=== PATIENT | female | born 1960 | race Caucasian/White ===

== ENCOUNTER 2020-07-02 12:08 | Emergency (ER) | payer OTHER, SELFPAY ==
--- NOTE | ~2020-07-02 | XR_ITS ---
EXAMINATION: XR foot LT min 3V DATE: 07/02/2020 12:31 INDICATION: Left foot injury and pain. TECHNIQUE: 4 views of left foot were obtained. COMPARISON: Left foot radiograph 05/01/2018 FINDINGS: Bone alignment is normal. No fracture. There is mild osteoarthritis of first metatarsophala ngeal joint. There is an enthesophyte at plantar aspect of calcaneal tuberosity. IMPRESSION: 1. Mild osteoarthritis of first metatarsophalangeal joint. Reviewed, dictated and finalized at location B.
[2020-07-02 12:19] VITALS: BP 127/70; PULSE 75; RESP 18; TEMP 36.5; O2SAT 97
--- NOTE | 2020-07-02 12:36 | ED.LOWEXIN ---
HPI - Extremity Injury (Lower) General Chief Complaint: Extremity Injury, Lower Stated Complaint: L/foot pain Source: patient Mode of arrival: ambulatory Limitations: no limitations History of Present Illness HPI Narrative: Patient is a 6-year-old female who presents complaining of left foot pain. She reports hitting foot on a shopping cart approximately 3 days ago. Reports past injury approximately 1.5 years ago with fracture to metatarsal. Reports ecchymosis that has resolved, tenderness with palpation or ambulation. Denies swelling. Denies other injuries. Related Data Home Medications Medication Instructions Recorded Confirmed fluoxetine 20 mg PO DAILY 07/02/20 07/02/20 gabapentin 600 mg PO DAILY 07/02/20 07/02/20 Allergies Allergy/AdvReac Type Severity Reaction Status Date / Time sulfamethizole Allergy Unknown Unknown Verified 07/02/20 12:23 sulfamethoxazole Allergy Unknown Unknown Verified 07/02/20 12:23 trimethoprim Allergy Unknown Unknown Verified 07/02/20 12:23 Review of Systems Review of Systems: Narrative: CONSTITUTIONAL: Denies fever, chills, or sweats. EYES: Denies visual changes, redness, or discharge. ENT: Denies rhinorrhea, congestion, sore throat, or otalgia. CARDIOVASCULAR: Denies chest pain, palpitations, or edema. RESPIRATORY: Denies cough or dyspnea. GASTROINTESTINAL: Denies abdominal pain, nausea, vomiting, or diarrhea. GENITOURINARY: Denies dysuria or hematuria. SKIN: Denies rash or itching. MUSCULOSKELETAL: Denies back pain, joint pain, or myalgia. Reports left foot pain NEUROLOGIC: Denies headache, numbness, dizziness, or weakness. PSYCHIATRIC: Denies anxiety or depression. PMFSH Past Medical History Medical History (Updated 07/02/20 @ 12:47 by GREGORIO Bateman) Migraines Social History Social History Smoking status: Never smoker Alcohol intake: never Exam Narrative: Exam Narrative: GENERAL: Well-appearing, well-nourished, and in no acute distress. HEAD: Normocephalic, atraumatic. EYES: EOMI. No redness or drainage. Conjunctiva are normal. ENT: Mucous membranes pink and moist. CHEST: No respiratory distress. Clear to auscultation. HEART: Regular rate and rhythm. No murmur appreciated. Normal peripheral pulses. EXTREMITIES: Normal range of motion. Tenderness palpation to fourth and fifth metatarsals, no edema, ecchymosis or erythema noted SKIN: Warm, dry, no rash. NEURO: No focal deficits. Alert and oriented x3. Gait steady. PSYCH: Normal affect. No signs of depression or anxiety. Course Vital Signs Vital signs: Vital Signs Temperature 36.5 C 07/02/20 12:19 Pulse Rate 75 07/02/20 12:19 Respiratory Rate 18 07/02/20 12:19 Blood Pressure 127/70 07/02/20 12:19 Pulse Oximetry 97 07/02/20 12:19 Temperature 36.5 C 07/02/20 12:19 Pulse Rate 75 07/02/20 12:19 Respiratory Rate 18 07/02/20 12:19 Blood Pressure 127/70 07/02/20 12:19 Pulse Oximetry 97 07/02/20 12:19 Reviewed. Patient has been instructed to follow-up with her PCP regarding her blood pressure. MDM - Extremity Injury (Lower) MDM Narrative Medical decision making narrative: Patient's x-ray shows no fracture or dislocation. Discussed with patient. Patient reports albert taping fourth and fifth toe has decreased pain. Patient may continue to albert tape as needed. Postop shoe offered. Follow-up with corn breeder if symptoms persist. Imaging Data Radiologist's impression: FINDINGS: Bone alignment is normal. No fracture. There is mild osteoarthritis of first metatarsophalangeal joint. There is an enthesophyte at plantar aspect of calcaneal tuberosity. Critical Care Time Critical Care Time Critical Care Time: No Discharge Plan Discharge Clinical Impression: Foot pain, left Patient Disposition: Home, Self-Care Condition: Stable Instructions: Contusion in Adults (ED) Additional Instructions: You may u
== END 2020-07-02 13:27 | disposition home or self-care (01) ==
PROVIDERS: Emergency Provider Nurse Practitioner
DX: M79.672 Pain in left foot (principal)
CPT/HCPCS: 73630; 99213; G0463

== ENCOUNTER 2021-11-04 10:01 | Emergency (ER) | payer OTHER, SELFPAY ==
--- NOTE | ~2021-11-04 | XR_ITS ---
EXAMINATION: XR abdomen/kub 1V DATE: 11/04/2021 10:37 INDICATION: Right abdominal pain. Hematuria. TECHNIQUE: A supine view of the abdomen on 2 radiographs was obtained. COMPARISON: Abdomen radiographs 10/07/2018, CT abdomen and pelvis 10/07/2018 FINDINGS: There are no dilated loops of bowel. There are phleboliths in the pelvis. Surgical clips in the right upper quadrant are likely from cholecystectomy. IMPRESSION: 1. No visible urolithiasis. Reviewed, dictated and finalized at location A. SCREEN PRINTER IMPRESSION: 1. No visible urolithiasis.
[2021-11-04 10:12] VITALS: BP 137/51; PULSE 76; RESP 18; TEMP 36.6; O2SAT 98
--- NOTE | 2021-11-04 10:12 | ED.FEMALEGU ---
HPI - Female Genitourinary General Chief complaint: Urogenital-Female Stated complaint: Female Urogenital Time Seen by Provider: 11/04/21 10:12 Source: patient Mode of arrival: ambulatory Limitations: no limitations History of Present Illness HPI Narrative: Elena is a 61-year-old female patient ambulated into the [facility]. Patient states she has had urinary frequency urinary urgency and right flank pain since October 29. Patient called her primary physician was put on Macrobid twice daily for 5 days. She has completed the antibiotic regimen. She states she has a history of gout. She states last couple days she has had increased pain. She describes burning with urination. She is allergic to Cipro which gives her a rash. She has had multiple previous surgeries including hernia surgery hysterectomy appendectomy cholecystectomy. Patient denies any fever denies any chills. Patient has been increasing her water intake. Patient states she has a family history of stones but herself she has never had MD elicited complaint: dysuria Related Data Home Medications Medication Instructions Recorded Confirmed fluoxetine 20 mg PO DAILY 07/02/20 11/04/21 gabapentin 600 mg PO DAILY 07/02/20 11/04/21 Allergies Allergy/AdvReac Type Severity Reaction Status Date / Time sulfamethizole Allergy Mild Hives Verified 11/04/21 10:25 sulfamethoxazole Allergy Mild Hives Verified 11/04/21 10:25 trimethoprim Allergy Mild Hives Verified 11/04/21 10:25 Review of Systems Review of Systems: CONSTITUTIONAL: Denies body aches, fever, chills, or sweats. EYES: Denies visual changes, redness, or discharge. ENT: Denies rhinorrhea, congestion, sore throat, or otalgia. CARDIOVASCULAR: Denies chest pain, palpitations, or edema. RESPIRATORY: Denies cough or dyspnea. GASTROINTESTINAL: Denies abdominal pain, nausea, vomiting, or diarrhea. GENITOURINARY: + dysuria + hematuria. SKIN: Denies rash, itching, or wounds. MUSCULOSKELETAL: + back pain, denies joint pain, or myalgia. NEUROLOGIC: Denies headache, numbness, tingling, or weakness. PSYCH: Denies depression or anxiety. PMFSH Past Medical History Medical History Migraines Social History Social History (Reviewed 11/04/21 @ 10:16 by ALINA Baez Smoking status: Never smoker Alcohol intake: never Comments At time of signature, I have reviewed and agree with nursing past medical, surgical, social and family history unless otherwise noted. Please see nursing chart for further information. There is no relevant family history pertinent to the presenting complaint Exam Narrative: GENERAL: Well-appearing, well-nourished, and in no acute distress. HEAD: Normocephalic, atraumatic. EYES: EOMI. No redness or drainage. Conjunctivae normal. ENT: Mucous membranes pink and moist. Nares clear. No rhinorrhea. NECK: Normal AROM. Supple. CHEST: No respiratory distress. Clear to auscultation. ABDOMEN: Soft, nontender, nondistended, normal active bowel sounds. No rebound tenderness psoas sign is negative. Negative for CVA tenderness bilaterally MUSCULOSKELETAL: No bony tenderness. EXTREMITIES: Normal range of motion. No edema. SKIN: Warm, dry, no rash. Capillary refill normal. Normal skin turgor. NEURO: No focal deficits. Alert and oriented x3. Gait steady. PSYCH: Normal affect. No signs of depression or anxiety. Course Vital Signs Vital signs: Vital Signs Temperature 36.6 C 11/04/21 10:12 Pulse Rate 76 11/04/21 10:12 Respiratory Rate 18 11/04/21 10:12 Blood Pressure 137/51 L 11/04/21 10:12 Pulse Oximetry 98 11/04/21 10:12 Temperature 36.6 C 11/04/21 10:12 Pulse Rate 76 11/04/21 10:12 Respiratory Rate 18 11/04/21 10:12 Blood Pressure 137/51 L 11/04/21 10:12 Pulse Oximetry 98 11/04/21 10:12 Reviewed. Pt has been instructed to follow up with her PCP regarding her elevated blood pressure
== END 2021-11-04 11:05 | disposition home or self-care (01) ==
PROVIDERS: Emergency Provider Nurse Practitioner Family
DX: R30.0 Dysuria (principal)
CPT/HCPCS: 74018; 81003; 87086; 87088; 99213; G0463

== ENCOUNTER 2021-12-14 11:32 | Emergency (ER) | payer OTHER, SELFPAY ==
[2021-12-14 11:34] VITALS: BP 138/72; PULSE 86; RESP 16; TEMP 36.2; O2SAT 95
[2021-12-14 14:01] VITALS: BP 120/90; PULSE 99; RESP 15; O2SAT 96
--- NOTE | 2021-12-14 14:29 | PC.NURSE ---
pt to leave d/t wait time,
== END 2021-12-14 15:36 | disposition left against medical advice (07) ==
LOC: ANHED 14:38
DX: R10.9 Unspecified abdominal pain (principal)
CPT/HCPCS: 99199

== ENCOUNTER 2022-09-12 10:01 | Emergency (ER) | payer OTHER, SELFPAY ==
[2022-09-12 10:13] VITALS: BP 116/70; PULSE 78; RESP 18; TEMP 36.6; O2SAT 98
--- NOTE | 2022-09-12 10:19 | ED.URI ---
HPI - URI/Sore Throat General Chief Complaint: Upper Respiratory Infection Stated Complaint: sorethroat Source: patient Mode of arrival: ambulatory Limitations: no limitations History of Present Illness HPI Narrative: This is a 60-year-old female comes in complaining sore throat sinus drainage ear pressure a single onset of hiatal October. Patient states she just got back from [facility] on the and had calmed down not feeling well he has been taking Mucinex daily some Claritin some Tylenol: Full and nothing has seemed to help patient denies having any fever nausea vomiting and/or diarrhea but feels like her throat is on fire. Patient states she called primary care provider who informed her that can get around for her to come to urgent care. Related Data Home Medications Medication Instructions Recorded Confirmed fluoxetine 20 mg capsule 20 mg PO DAILY 07/02/20 09/12/22 gabapentin 600 mg tablet 600 mg PO DAILY 07/02/20 09/12/22 Allergies Allergy/AdvReac Type Severity Reaction Status Date / Time sulfamethizole Allergy Mild Hives Verified 09/12/22 10:18 sulfamethoxazole Allergy Mild Hives Verified 09/12/22 10:18 trimethoprim Allergy Mild Hives Verified 09/12/22 10:18 Review of Systems Review of Systems: sore throat, nose pressure, ear pain All systems reviewed & are unremarkable except as noted in HPI and below PMFSH Past Medical History Medical History Migraines Social History Social History Smoking status: Never smoker Alcohol intake: never Exam Narrative: GENERAL:Well-appearing, well-nourished, and in no acute distress. HEAD:Normocephalic. EYES: PERRLA and EOMI. ENT: Nares clear, positive rhinorrhea pale boggy turbinates with some erythema on the right side swollen. Mucous membranes moist. CHEST: Clear to auscultation. No respiratory distress. HEART: Regular rate and rhythm Normal peripheral pulses. ABDOMEN: Soft, nontender, nondistended, normal active bowel sounds. EXTREMITIES: Normal range of motion. No edema. SKIN: Warm, dry, no rash. NEURO: No focal deficits. Alert and oriented x3. Course Course Level of Care: Express Care Visit Vital Signs Vital signs: Vital Signs Temperature 97.8 F 09/12/22 10:13 Pulse Rate 78 09/12/22 10:13 Respiratory Rate 18 09/12/22 10:13 Blood Pressure 116/70 09/12/22 10:13 Pulse Oximetry 98 09/12/22 10:13 Oxygen Delivery Room Air 09/12/22 10:13 Temperature 97.8 F 09/12/22 10:13 Pulse Rate 78 09/12/22 10:13 Respiratory Rate 18 09/12/22 10:13 Blood Pressure 116/70 09/12/22 10:13 Pulse Oximetry 98 09/12/22 10:13 Oxygen Delivery Room Air 09/12/22 10:13 Discharge Plan Discharge Clinical Impression: Upper respiratory infection, Sinusitis Patient Disposition: Home, Self-Care Condition: Stable Instructions: Antibiotic Form, Sinusitis (ED), Rhinosinusitis (DC), Allergies (ED) Additional Instructions: Drink plenty of fluids Take medication as directed As I informed you if ths is viral antibiotics will not help and it only works on bacterial infection You need to follow up with your PCP Prescriptions: New azithromycin [Zithromax Z-Lexa] 250 mg tablet See Rx Instructions .ROUTE .COMPLEX Qty: 6 0RF Rx Instructions: For 250 mg dose pack: take 500 mg today (day 1), then 250 mg for 4 days (days 2-5) fluticasone propionate [Flonase Allergy Relief] 50 mcg/actuation spray,suspension 1 spray intranasal BID Qty: 16 0RF Rx Instructions: administer into each nostril No Action gabapentin 600 mg Tablet 600 mg PO DAILY fluoxetine 20 mg Capsule 20 mg PO DAILY Follow-up/Referrals: UNKNOWN,DOCTOR [Primary Care Provider] - Time of Disposition: 10:31
== END 2022-09-12 10:40 | disposition home or self-care (01) ==
PROVIDERS: Emergency Provider Nurse Practitioner Family
DX: J06.9 Acute upper respiratory infection, unspecified (principal); J32.9 Chronic sinusitis, unspecified
CPT/HCPCS: 99213; G0463

== ENCOUNTER 2022-11-27 09:21 | Inpatient (IN) | payer OTHER, SELFPAY ==
[2022-11-27] VITALS (10 sets, daily range): BP systolic 109–144; BP diastolic 54–74; PULSE 74–84; RESP 16–20; TEMP 36.2–36.8; O2SAT 95–100; BMI 38.5
--- NOTE | ~2022-11-27 | CT_ITS ---
CT Abdomen and Pelvis with contrast. History: Abdominal pain. Spiral CT of the abdomen and pelvis was performed after the administration of intravenous contrast. 1 00 cc of Omnipaque 350 was administered intravenously without complication. Dose reduction technique was used on this scan by utilizing automated exposure control and iterative reconstruction technique. The dose-length product (DLP) was 899.90 mGy-cm. COMPARISON: 10/07/2018 Findings: Scans through the lung bases demonstrate mild atelectatic change. The liver, spleen, pancreas, adrenals and kidneys are within normal limits. Cholecystectomy clips not ed. No evidence of aortic aneurysm. No lymphadenopathy is seen. There is diffuse large bowel wall thickening with mild pericolonic inflammatory change. No abscess or free air. No bowel obstruction. Images through the pelvis were performed. Urinary bladder unremarkable. Patient is post hysterectomy. No pelvic mass. No ascites is seen. Impression: Diffuse infectious/inflammatory colitis. No abscess or free air. Reviewed, dictated and finalized at [facility]. NG I INSTRUCTOR Impression: Diffuse infectious/inflammatory colitis. No abscess or free air.
[2022-11-27 09:58] LABS: Alanine Aminotransferase 29 U/L (6-35); Albumin Level 3.9 g/dL (3.5-5.1); Alkaline Phosphatase 86 U/L (38-126); Anion Gap 8 mmol/L (8-16); Aspartate Amino Transferase 32 U/L (14-36); Bilirubin,Total 1.3 mg/dL (0.2-1.3); Blood Urea Nitrogen 6 mg/dL (7-17); Calcium 8.5 mg/dL (8.4-10.2); Carbon Dioxide 22 mmol/L (22-30); Chloride 109 mmol/L (98-107); Estimated CRCL calculation 94 ml/min; Estimated Glomerular Filt Rate > 60; Glucose 106 mg/dL (65-110); Lipase 28 U/L (23-300); Potassium 3.8 mmol/L (3.4-5.0); Sodium 139 mmol/L (137-145)
[2022-11-27 11:14] LABS: Basophils Absolute Auto 0.1 K/mm3 (0.0-0.1); Basophils Percent Auto 0.5 % (0.2-1.2); Eosinophils Absolute Auto 0.2 K/mm3 (0-0.3); Eosinophils Percent Auto 1.8 % (0-4.4); Hematocrit 44.4 % (37.0-47.0); Hemoglobin 15.6 g/dL (12.0-15.0); Immature Granulocyte Absolute 0.04 K/mm3 (0.00-0.031); Immature Granulocyte Percent A 0.3 % (0-0.5); Lymphocytes Absolute Auto 1.79 K/mm3 (0.9-3.2); Mean Corpuscular HGB Conc 35.1 g/dl (32-36); Mean Corpuscular Hemoglobin 33.3 pg (26-34); Mean Corpuscular Volume 94.9 fl (80-100); Mean Platelet Volume 9.8 fl (7.4-10.4); Monocytes Absolute Auto 0.9 K/mm3 (0.1-0.6); Monocytes Percent Auto 7.5 % (2.6-8.5); Neutrophils Percent Auto 74.9 % (45.5-73.1); Platelet Count Result 290 k/mm3 (150-375); Red Blood Count 4.68 M/mm3 (4.2-5.4); Red Cell Distribution Width 12.1 % (11.5-14.5)
[2022-11-27 11:46] LABS: Add Urine Microscopic? YES; Appearance Urine Slightly Cloudy (Clear); Bilirubin Urine 2+ (Negative); Blood Urine Trace-intact (Negative); Color Urine Dark Yellow (Yellow); Glucose Urine UA Trace mg/dL (Negative); Ketones Urine Trace mg/dL (Negative); Leukocyte Esterase Ur Negative LEU/UL (Negative); Nitrate Urine Positive (Negative); Protein Urine 2+ mg/dL (Negative); Specific Grav Ur 1.025 (1.001-1.035); pH Urine 5.5 (5.0-9.0)
[2022-11-27 11:55] LABS: Mucus Urine Heavy /lpf; Squamous Epithelial Cell Urine Many /hpf (Few)
[2022-11-27] MEDS: MORPHINE SULFATE (*CRX) 4 MG/ML INJ IV PUSH ×2 (12:08→15:52)
[2022-11-27] MEDS: ONDANSETRON INJ 4 MG/2 ML VIAL IV PUSH (12:08)
--- NOTE | 2022-11-27 12:41 | ED.ABDPAIN ---
HPI - Abdominal Pain General Chief Complaint: Abdominal Pain Stated Complaint: diarrhea x 3 weeks/abd pain Time Seen by Provider: 11/27/22 11:40 History of Present Illness HPI narrative: Patient is a 62-year-old female who presents ER with diarrhea. Ongoing over the last 3 weeks. Reports she had a COVID vaccination on 11/03/2022, she then developed a UTI and started Keflex. She has been having diarrhea since then. She cannot count the number of times a day she has loose stool because it is nearly constant. She has developed severe pain in her lower abdomen. She endorses fever. No out of country travel or exposure to untreated water. Related Data Home Medications Medication Instructions Recorded Confirmed fluoxetine 20 mg capsule 20 mg PO DAILY 07/02/20 09/12/22 gabapentin 600 mg tablet 600 mg PO DAILY 07/02/20 09/12/22 Allergies Allergy/AdvReac Type Severity Reaction Status Date / Time sulfamethizole Allergy Mild Hives Verified 11/27/22 11:35 sulfamethoxazole Allergy Mild Hives Verified 11/27/22 11:35 trimethoprim Allergy Mild Hives Verified 11/27/22 11:35 Review of Systems Review of Systems: All systems reviewed & are unremarkable except as noted in HPI and below Constitutional: Constitutional: Reports chills, Denies fatigue and Reports fever(s) ENT: Denies nasal congestion and Denies sore throat Cardiovascular: Cardiovascular: Denies chest pain, Denies rapid heart rate and Denies radiating jaw, neck or arm pain Gastrointestinal: Gastrointestinal: Reports abdominal pain, Reports nausea and Reports vomiting PMFSH Past Medical History Medical History (Updated 11/27/22 @ 18:34 by Yannick Alvarado MD) Migraines Mucinous cystadenoma of appendix Right inguinal hernia Surgical History Surgical History (Updated 11/27/22 @ 14:31 by Yannick Alvarado MD) History of right inguinal hernia repair Social History Social History Smoking status: Never smoker Alcohol intake: never Exam Narrative: GENERAL: Well-appearing, well-nourished, and in no acute distress. HEAD: Normocephalic, atraumatic. EYES: PERRL and EOMI. ENT: Mucous membranes moist. CHEST: Clear to auscultation. No respiratory distress. HEART: Regular rate and rhythm. Normal peripheral pulses. ABDOMEN: Soft, nontender, nondistended. EXTREMITIES: Normal range of motion. No edema. SKIN: Warm, dry, no rash. NEURO: Alert and oriented x3. PSYCH: Normal mood and affect. Course Course Emergency Course: Patient informed of results of imaging study. Will obtain stool studies for C. difficile colitis as this is highly likely what is occurring. She will be started on vancomycin oral liquid after stool sample. Vital Signs Vital signs: Vital Signs Temperature 98.2 F 11/27/22 09:29 Pulse Rate 84 11/27/22 09:29 Respiratory Rate 16 11/27/22 09:29 Blood Pressure 127/70 11/27/22 09:29 Pulse Oximetry 95 11/27/22 09:29 Oxygen Delivery Room Air 11/27/22 09:29 Temperature 98.2 F 11/27/22 09:29 Pulse Rate 81 11/27/22 15:59 Respiratory Rate 20 11/27/22 15:59 Blood Pressure 122/57 L 11/27/22 15:59 Pulse Oximetry 97 11/27/22 15:59 Oxygen Delivery Room Air 11/27/22 09:29 MDM - Abdominal Pain Lab Data 11/27/22 11:08 11/27/22 09:42 Labs: Lab Results 11/27/22 11/27/22 11/27/22 Range/Units 09:42 11:08 11:34 WBC 12.0 H (4.5-10.0) K/mm3 RBC 4.68 (4.2-5.4) M/mm3 Hgb 15.6 H (12.0-15.0) g/dL Hct 44.4 (37.0-47.0) % MCV 94.9 (80-100) fl MCH 33.3 (26-34) pg MCHC 35.1 (32-36) g/dl RDW 12.1 (11.5-14.5) % Plt Count 290 (150-375) k/mm3 MPV 9.8 (7.4-10.4) fl Immature Gran % (Auto) 0.3 (0-0.5) % Neut % (Auto) 74.9 H (45.5-73.1) % Lymph % (Auto) 15.0 L (18.3-44.2) % [place] % (Auto) 7.5 (2.6-8.5) % Eos % (Auto) 1.8 (0-4.4) % Baso % (Auto) 0.5 (0.2-
[2022-11-27 15:28] LABS: Influenza A QL RT-PCR Negative (Negative); Influenza B QL RT-PCR Negative (Negative); SARS-CoV-2 RNA PCR Negative
[2022-11-27 15:48] LABS: Toxigenic C. Diff POSITIVE (NEGATIVE)
[2022-11-27] MEDS: SODIUM CHLORIDE 0.9% IV 1,000 ML 125 ML IV CONT ×2 (15:52→22:27)
[2022-11-27] MEDS: VANCOMYCIN ORAL 125 MG/2.5 ML SYRUP PO ×2 (15:52→22:26)
[2022-11-27] MEDS: HYDROcodone/acetaminophen (*CRX) 5-325 MG TABLET 1 TAB PO ×2 (19:29→23:05)
--- NOTE | 2022-11-27 20:00 | PM.IMHP ---
H&P: HPI History of Present Illness Date/Time: 11/27/22 20:00 Chief Complaint: Abdominal pain and diarrhea. 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 Patient provides the following history. She had a COVID vaccination on 11/03/2022. Shortly thereafter she developed urinary symptoms and was started on cephalexin which she took for 5 days. She has had diarrhea since that time, too numerous to count, and she has since developed cramping pain in the lower abdomen. The diarrhea is foul smelling and she has noticed some mucus admixed with the stool. She also endorses a fever to 101.9? this past weekend. She has never had similar symptoms in the past and denies sick contacts. No recent travel. She has not noticed any blood in the stool however it is dark but she has been taking Pepto-Bismol. She has been trying to take Pedialyte to stay hydrated but admits that her appetite has been poor. She denies vomiting. She was afebrile on arrival to the emergency department with stable blood pressures. Labs were significant for a mild leukocytosis, no electrolyte abnormalities, and normal lipase and LFTs. UA looks contaminated. CT of the abdomen and pelvis showed diffuse infectious or inflammatory colitis and a subsequent C diff test came back positive. She has been started on p.o. vancomycin and is being admitted for supportive care. Review of Systems Review of Systems: Twelve systems were reviewed and are negative except for as per HPI. [facility] Past Medical History Medical History (Updated 11/28/22 @ 00:10 by Althea Reyna PA-C) Anxiety Migraines Mucinous cystadenoma of appendix Surgical History Surgical History (Updated 11/27/22 @ 23:04 by Althea Reyna PA-C) History of cataract removal with insertion of prosthetic lens History of cholecystectomy History of colonoscopy History of hysterectomy History of laparoscopic appendectomy (08/2015) History of right inguinal hernia repair (10/2015) Laparoscopic repair with mesh in 10/2015. Open repair with mesh for recurrent hernia in 02/2016. Family History Family History Father Chronic obstructive pulmonary disease Colon cancer Prostate carcinoma Lung cancer Liver cancer Mother Diabetes mellitus Grandparent Diabetes mellitus Prostate carcinoma Sibling Prostate carcinoma Social History Social History (Updated 11/27/22 @ 23:05 by Althea Reyna PA-C) Social History: Surrogate medical decision maker: Dereje Mariee, spouse. Code status: Full code. Smoking status: Never smoker Alcohol intake: never Substance use: never Lack of Transportation: No Lack of Food: Never True Current Housing: I Have Housing Concerned About Future Housing: No Difficulty Paying Gas/Electric Bills: No Difficulty Paying for Meds: No Currently Unemployed: No Education: Associate Degree Difficulty w/ Childcare or Family Care: No Additional living arrangements comments: Lives with spouse in [place]. Additional occupation/education comments: Retired. Spiritual care concerns: No Meds Home Medications and Allergies Home Medications Medication Instructions Recorded Confirmed Type fluoxetine 20 mg capsule 20 mg PO DAILY 07/02/20 11/27/22 History gabapentin 600 mg tablet 300 mg PO EVERY OTHER DAY 07/02/20 11/27/22 History Lactobacillus 1 cap PO DAILY 11/27/22 11/27/22 History acidophilus-Bifidobac.animalis 2.5 billion cell capsule (Daily Probiotic) Women's Daily Multivitamin 1 tablet PO DAILY 11/27/22 11/27/22 History Allergies Allergy/AdvReac Type Severity Reaction Status Date / Time sulfamethizole Allergy Mild Hives Verified 11/27/22 11:35 sulfamethoxazole
--- NOTE | 2022-11-27 21:44 | ADMGEN ---
This patient, Elena Mariee, was admitted to 2 Medical Room 249-01. Patient/family oriented to hospital policies and general routines including ID bracelet, bed and alarms, visiting hours, pain management, procedures, bathroom and other care routines, personal items, smoking policy, room service/diet, and visiting hours. Information on how to activate the Rapid Response Team has been discussed. Patient/Family are encouraged to report perceived risks to care and to ask questions if they do not understand what they are told or what they should do.
[2022-11-28] VITALS: BP 114/48; PULSE 85; RESP 20; TEMP 37.3; O2SAT 98
[2022-11-28] MEDS: KCL 20 MEQ/D5/0.45% SOD CHL 1,000 ML 100 ML IV CONT ×3 (00:40→19:54)
[2022-11-28] MEDS: VANCOMYCIN ORAL 125 MG/2.5 ML SYRUP PO ×4 (03:18→20:03)
[2022-11-28 04:00] VITALS: BP 107/48; PULSE 78; RESP 20; TEMP 36.8; O2SAT 97
[2022-11-28 05:37] LABS: Basophils Absolute Auto 0.1 K/mm3 (0.0-0.1); Basophils Percent Auto 0.6 % (0.2-1.2); Eosinophils Absolute Auto 0.2 K/mm3 (0-0.3); Eosinophils Percent Auto 2.3 % (0-4.4); Hematocrit 36.3 % (37.0-47.0); Hemoglobin 12.7 g/dL (12.0-15.0); Immature Granulocyte Absolute 0.03 K/mm3 (0.00-0.031); Immature Granulocyte Percent A 0.3 % (0-0.5); Lymphocytes Absolute Auto 1.44 K/mm3 (0.9-3.2); Lymphocytes Percent Auto 15.5 % (18.3-44.2); Mean Corpuscular Hemoglobin 33.7 pg (26-34); Mean Corpuscular Volume 96.3 fl (80-100); Mean Platelet Volume 9.8 fl (7.4-10.4); Monocytes Absolute Auto 0.7 K/mm3 (0.1-0.6); Monocytes Percent Auto 7.7 % (2.6-8.5); Neutrophils Absolute Auto 6.9 K/mm3 (1.3-6.7); Neutrophils Percent Auto 73.6 % (45.5-73.1); Platelet Count Result 198 k/mm3 (150-375); Red Blood Count 3.77 M/mm3 (4.2-5.4); Red Cell Distribution Width 12.1 % (11.5-14.5); White Blood Count 9.3 K/mm3 (4.5-10.0)
[2022-11-28 05:51] LABS: Alanine Aminotransferase 23 U/L (6-35); Albumin Level 3.3 g/dL (3.5-5.1); Alkaline Phosphatase 61 U/L (38-126); Anion Gap 4 mmol/L (8-16); Aspartate Amino Transferase 24 U/L (14-36); Bilirubin,Total 0.9 mg/dL (0.2-1.3); Blood Urea Nitrogen 6 mg/dL (7-17); Calcium 7.5 mg/dL (8.4-10.2); Carbon Dioxide 25 mmol/L (22-30); Chloride 102 mmol/L (98-107); Estimated CRCL calculation 106 ml/min; Estimated Glomerular Filt Rate > 60; Glucose 107 mg/dL (65-110); Potassium 3.4 mmol/L (3.4-5.0); Sodium 131 mmol/L (137-145)
[2022-11-28] MEDS: HYDROcodone/acetaminophen (*CRX) 5-325 MG TABLET 1 TAB PO ×3 (09:16→19:54)
[2022-11-28 10:00] VITALS: BP 112/58; PULSE 76; RESP 20; TEMP 36.7; O2SAT 98
--- NOTE | 2022-11-28 13:55 | PM.IMPN ---
Progress Note: A&P Assessment and Plan (1) C. difficile colitis: Code(s): A04.72 - Enterocolitis due to Clostridium difficile, not specified as recurrent Status: Acute Assessment and Plan: The patient presented to the ED for evaluation of abdominal pain, ongoing diarrhea for several weeks, and recent development of fever. She was recently on cephalexin for 5 days for urinary tract infection and she has had too numerous to count episodes of diarrhea a day since that time. She tested positive for C diff started on p.o. vancomycin. Patient does not have history of C diff; this is her 1st occurrence. Blood cultures pending CT of the abdomen and pelvis shows findings consistent with infectious colitis. Analgesics p.r.n. Zofran p.r.n. for nausea (2) Dehydration: Code(s): E86.0 - Dehydration Status: Acute Assessment and Plan: IV fluid hydration Monitor electrolytes Time Spent With Patient Time: Greater than 35 minutes Subjective Date/time seen: 11/28/22 13:55 Interval history: 62-year-old female with non pertinent medical history. Patient still having diarrhea and mild abdominal cramping. States that she is doing much better since admission. Discussed with her course of treatment for C diff. patient was febrile I will before admission but has not had a fever since. Patient has had nausea but is being treated with Zofran. Denies nausea, headache, chest pain, shortness a breath. Review of Systems Review of Systems: All systems reviewed & are unremarkable except as noted in HPI and below Exam Narrative: GENERAL: Comfortable, no acute distress HENMT: moist mucous membranes EYES: EOM intact b/l NECK: no lymphadenopathy RESPIRATORY: clear to auscultation CARDIO: RRR GI: soft, tenderness to palpation x4, bowel sounds present SKIN: no rashes EXTREMITIES: no edema, redness or tenderness Objective Data Vital Signs Vital Signs: Vital Signs - 24 hr 11/27/22 15:59 11/27/22 20:11 11/27/22 20:52 Temperature Pulse Rate 81 79 78 Respiratory Rate 20 18 18 Blood Pressure 122/57 L 118/59 L 114/58 L Pulse Oximetry 97 96 97 Oxygen Delivery 11/27/22 21:51 11/27/22 21:45 11/28/22 00:00 Temperature 97.2 F L 99.1 F Pulse Rate 74 85 Respiratory Rate 20 20 Blood Pressure 116/56 L 114/48 L Pulse Oximetry 99 98 Oxygen Delivery Room Air 11/28/22 04:00 11/28/22 10:00 11/28/22 09:13 Temperature 98.2 F 98.0 F Pulse Rate 78 76 Respiratory Rate 20 20 Blood Pressure 107/48 L 112/58 L Pulse Oximetry 97 98 Oxygen Delivery Room Air Intake/Output Intake/Output: Intake & Output 11/25/22 11/26/22 11/27/22 11/28/22 23:59 23:59 23:59 23:59 Intake Total 1000 2092 Balance 1000 209 Meds/Results Medications: Active Medications Generic Name Dose Route Start Last Admin Trade Name Freq PRN Reason Stop Dose Admin Acetaminophen 650 mg 11/27/22 12:59 Acetaminophen 325 Mg Tablet PO Q4H PRN Mild Pain (1-3) or Fever Hydrocodone Bitart/Acetaminophen 1 tab 11/27/22 12:59 11/28/22 09:16 Hydrocodone/Acetaminophen (*Crx) 5-325 Mg Tablet PO 1 tab Q4H PRN Administration Pain Rated 4-6 Potassium Chloride/Dextrose/Sod Cl 1,000 mls @ 100 mls/hr 11/28/22 00:30 11/28/22 10:26 Kcl 20 Meq/D5/0.45% Sod Chl IV CONT 100 mls/hr .Q10H SYED Administration Morphine Sulfate 2 mg 11/28/22 00:17 Morphine Sulfate (*Crx) 4 Mg/Ml Inj IV PUSH Q4H PRN Pain Rated 7-10 Ondansetron HCl 4 mg 11/27/22 12:59 Ondansetron Inj 4 Mg/2 Ml Vial IV PUSH Q4H PRN Nausea Vancomycin HCl 125 mg 11/27/22 21:00 11/28/22 09:13 Vancomycin Oral 125 Mg/2.5 Ml Syrup PO 125 mg Q6H SYED Administration Radiology Results: ITS Impressions Abdomen/Pelvis CT 11/27/22 12:34 Impression: Diffuse infectious/inflammatory colitis. No abscess or free air. Labs Labs: Laboratory Results
[2022-11-28 19:34] VITALS: BP 118/48; PULSE 88; RESP 18; TEMP 37; O2SAT 97
[2022-11-28] MEDS: ACETAMINOPHEN 325 MG TABLET 650 MG PO (20:03)
[2022-11-28] MEDS: ONDANSETRON INJ 4 MG/2 ML VIAL IV PUSH (20:04)
[2022-11-28 23:22] VITALS: BP 106/54; PULSE 68; RESP 18; TEMP 36.4; O2SAT 93
[2022-11-29] MEDS: HYDROcodone/acetaminophen (*CRX) 5-325 MG TABLET 1 TAB PO ×5 (00:58→20:40)
[2022-11-29] MEDS: VANCOMYCIN ORAL 125 MG/2.5 ML SYRUP PO ×4 (03:12→20:41)
[2022-11-29 03:58] VITALS: BP 116/70; PULSE 76; RESP 17; TEMP 36.4; O2SAT 99
[2022-11-29] MEDS: KCL 20 MEQ/D5/0.45% SOD CHL 1,000 ML 100 ML IV CONT (05:11)
[2022-11-29 05:39] LABS: Basophils Absolute Auto 0.1 K/mm3 (0.0-0.1); Basophils Percent Auto 0.9 % (0.2-1.2); Eosinophils Absolute Auto 0.3 K/mm3 (0-0.3); Eosinophils Percent Auto 4.4 % (0-4.4); Hematocrit 36.7 % (37.0-47.0); Hemoglobin 12.6 g/dL (12.0-15.0); Immature Granulocyte Absolute 0.02 K/mm3 (0.00-0.031); Immature Granulocyte Percent A 0.4 % (0-0.5); Lymphocytes Absolute Auto 1.38 K/mm3 (0.9-3.2); Lymphocytes Percent Auto 24.5 % (18.3-44.2); Mean Corpuscular HGB Conc 34.3 g/dl (32-36); Mean Corpuscular Hemoglobin 33.2 pg (26-34); Mean Corpuscular Volume 96.6 fl (80-100); Mean Platelet Volume 9.8 fl (7.4-10.4); Monocytes Absolute Auto 0.4 K/mm3 (0.1-0.6); Monocytes Percent Auto 7.1 % (2.6-8.5); Neutrophils Absolute Auto 3.5 K/mm3 (1.3-6.7); Neutrophils Percent Auto 62.7 % (45.5-73.1); Platelet Count Result 204 k/mm3 (150-375); Red Cell Distribution Width 11.9 % (11.5-14.5); White Blood Count 5.6 K/mm3 (4.5-10.0)
[2022-11-29 05:48] LABS: Alanine Aminotransferase 22 U/L (6-35); Albumin Level 3.3 g/dL (3.5-5.1); Alkaline Phosphatase 62 U/L (38-126); Anion Gap 5 mmol/L (8-16); Aspartate Amino Transferase 24 U/L (14-36); Bilirubin,Total 0.6 mg/dL (0.2-1.3); Blood Urea Nitrogen 2 mg/dL (7-17); Calcium 7.6 mg/dL (8.4-10.2); Carbon Dioxide 25 mmol/L (22-30); Chloride 107 mmol/L (98-107); Estimated CRCL calculation 106 ml/min; Estimated Glomerular Filt Rate > 60; Glucose 98 mg/dL (65-110); Potassium 3.2 mmol/L (3.4-5.0); Sodium 137 mmol/L (137-145)
[2022-11-29 08:00] VITALS: BP 101/43; PULSE 56; RESP 20; TEMP 36.6; O2SAT 98
[2022-11-29] MEDS: KCL 20 MEQ/D5/0.9% SOD CHL 1,000 ML 75 ML IV CONT ×2 (09:32→20:40)
[2022-11-29] MEDS: MULTIVITAMINS THERAPEUTIC TAB (*BKC) 1 TABLET PO (09:34)
[2022-11-29] MEDS: FLUoxetine HCL 20 MG CAPSULE PO (09:34)
[2022-11-29] MEDS: ACIDOPHILUS/BULGARICUS CHEWABLE TABLET 1 TABLET PO (09:34)
[2022-11-29] MEDS: POTASSIUM CHLORIDE 20 MEQ TABLET 40 MEQ PO (09:34)
[2022-11-29 12:00] VITALS: BP 118/58; PULSE 66; RESP 20; TEMP 36.5; O2SAT 100
--- NOTE | 2022-11-29 13:06 | PM.IMPN ---
Progress Note: A&P Assessment and Plan (1) C. difficile colitis: Code(s): A04.72 - Enterocolitis due to Clostridium difficile, not specified as recurrent Status: Acute Assessment and Plan: C diff 2/2 abx use for UTI. PO vancomycin ongoing with report of >10 bm in 24 hours - patient has been keeping log. First occurrence. Blood cultures are negative. Fortunately WBC count continues to be stable and less likely fulminant. PRN analgesics, PRN zofran. (2) Dehydration: Code(s): E86.0 - Dehydration Status: Acute Assessment and Plan: Renal function has normalized - although with high output from diarrheal stools, will cont. IVF at current rate. (3) Hypokalemia: Code(s): E87.6 - Hypokalemia Status: Acute Assessment and Plan: Presume 2/2 GI losses. - Replete today, recheck labs in the am. Plan Expect discharge in the next 24-48 hours pending stools slowing to a reasonable degree. Plan to complete a 10 day course of oral vancomycin. Time Spent With Patient Time: Greater than 35 minutes Subjective Date/time seen: 11/29/22 13:06 Interval history: Patient describes multiple bowel movements - totaling over 10 in the last day. She feels fatigued and weak, but denies any abdominal pain. Review of Systems Constitutional: Constitutional: Reports no additional constitutional complaints Cardiovascular: Cardiovascular: Reports no additional cardiovascular complaints Respiratory: Respiratory: Reports no additional respiratory complaints Gastrointestinal: Gastrointestinal: Reports no additional gastrointestinal complaints Exam Narrative: GENERAL APPEARANCE: Appears to be in no acute distress. HEAD: normocephalic atraumatic EYES: PERRL, EOMI. Vision grossly intact. ENT: Hearing grossly intact, no nasal discharge NECK: Neck supple, trachea midline. CARDIAC: Normal S1/S2. Rhythm is regular. No murmurs, rubs, or gallops. No cyanosis or pallor. Extremities are warm and well perfused. LUNGS: Clear to auscultation without rales, rhonchi, wheezing or diminished breath sounds. Respirations even and unlabored. ABDOMEN: BS positive x 4 quadrants, quite active. Soft, nondistended, nontender. No guarding or rebound. MSK: No joint tenderness/swelling, fair strength in all extremities. PERIPHERAL VASCULAR: Peripheral pulses palpable. Normal perfusion, cap refill <2 seconds. No edema. NEURO: Follows commands. No focal deficits. SKIN: [place] without lesions or eruptions. PSYCH: Stable, no paranoia or delusional thinking. Objective Data Vital Signs Vital Signs: Vital Signs - 24 hr 11/28/22 19:34 11/28/22 23:22 11/29/22 03:58 Temperature 98.6 F 97.6 F 97.6 F Pulse Rate 88 68 76 Respiratory Rate 18 18 17 Blood Pressure 118/48 L 106/54 L 116/70 Pulse Oximetry 97 93 99 11/29/22 08:00 Temperature 97.9 F Pulse Rate 56 L Respiratory Rate 20 Blood Pressure 101/43 L Pulse Oximetry 98 Intake/Output Intake/Output: Intake & Output 11/26/22 11/27/22 11/28/22 11/29/22 23:59 23:59 23:59 23:59 Intake Total 1000 3554 3499 Balance 1000 3554 3499 Meds/Results Medications: Active Medications Generic Name Dose Route Start Last Admin Trade Name Freq PRN Reason Stop Dose Admin Acetaminophen 650 mg 11/27/22 12:59 11/28/22 20:03 Acetaminophen 325 Mg Tablet PO 650 mg Q4H PRN Administration Mild Pain (1-3) or Fever Hydrocodone Bitart/Acetaminophen 1 tab 11/27/22 12:59 11/29/22 09:41 Hydrocodone/Acetaminophen (*Crx) 5-325 Mg Tablet PO 1 tab Q4H PRN Administration Pain Rated 4-6 Fluoxetine HCl 20 mg 11/29/22 09:00 11/29/22 09:34 Fluoxetine Hcl 20 Mg Capsule PO 20 mg DAILY SYED Administration Gabapentin 300 mg 11/30/22 09:00 Gabapentin 300 Mg Capsule PO Q48HR SYED Potassium Chloride/Dextrose/Sod Cl 1,000 mls @ 75 mls/hr 11/29/22 07:25 11/29/22 09:32 Kcl 20 Meq/D5/0.9% Sod Chl IV CONT 75 mls/hr .[id number] SYED Adm
[2022-11-29] MEDS: ONDANSETRON INJ 4 MG/2 ML VIAL IV PUSH (15:31)
[2022-11-29 16:00] VITALS: BP 122/82; PULSE 62; RESP 20; TEMP 36.4; O2SAT 100
[2022-11-29 20:00] VITALS: BP 120/62; PULSE 103; RESP 17; TEMP 36.4; O2SAT 100
[2022-11-29 23:41] VITALS: BP 100/48; PULSE 76; RESP 17; TEMP 36; O2SAT 100
[2022-11-30] MEDS: HYDROcodone/acetaminophen (*CRX) 5-325 MG TABLET 1 TAB PO ×3 (00:38→11:08)
[2022-11-30] MEDS: VANCOMYCIN ORAL 125 MG/2.5 ML SYRUP PO ×2 (03:03→09:42)
[2022-11-30 04:00] VITALS: BP 107/62; PULSE 70; RESP 18; TEMP 36.4; O2SAT 97
[2022-11-30 05:28] LABS: Hematocrit 35.8 % (37.0-47.0); Hemoglobin 12.3 g/dL (12.0-15.0); Mean Corpuscular HGB Conc 34.4 g/dl (32-36); Mean Corpuscular Hemoglobin 32.6 pg (26-34); Mean Platelet Volume 9.8 fl (7.4-10.4); Platelet Count Result 202 k/mm3 (150-375); Red Blood Count 3.77 M/mm3 (4.2-5.4); Red Cell Distribution Width 11.9 % (11.5-14.5); White Blood Count 3.9 K/mm3 (4.5-10.0)
[2022-11-30 05:42] LABS: Alanine Aminotransferase 22 U/L (6-35); Albumin Level 3.1 g/dL (3.5-5.1); Alkaline Phosphatase 61 U/L (38-126); Anion Gap 1 mmol/L (8-16); Aspartate Amino Transferase 26 U/L (14-36); Bilirubin,Total 0.4 mg/dL (0.2-1.3); Calcium 7.7 mg/dL (8.4-10.2); Carbon Dioxide 27 mmol/L (22-30); Chloride 107 mmol/L (98-107); Estimated CRCL calculation 107 ml/min; Estimated Glomerular Filt Rate > 60; Glucose 93 mg/dL (65-110); Magnesium 2.1 mg/dL (1.6-2.3); Potassium 3.7 mmol/L (3.4-5.0); Sodium 135 mmol/L (137-145)
[2022-11-30 06:02] LABS: Blood Urea Nitrogen < 2 mg/dL (7-17)
[2022-11-30] MEDS: FLUoxetine HCL 20 MG CAPSULE PO (09:39)
[2022-11-30] MEDS: ACIDOPHILUS/BULGARICUS CHEWABLE TABLET 1 TABLET PO (09:39)
[2022-11-30] MEDS: MULTIVITAMINS THERAPEUTIC TAB (*BKC) 1 TABLET PO (09:40)
[2022-11-30] MEDS: GABAPENTIN 300 MG CAPSULE PO (09:40)
[2022-11-30] MEDS: POTASSIUM CHLORIDE 20 MEQ TABLET 40 MEQ PO (09:41)
--- NOTE | 2022-11-30 09:57 | PM.DS ---
DS: Admitting Diagnosis Discharge Date 11/30/22 Admitting Diagnosis C. diff colitis, dehydration, anxiety, hypokalemia DS: Discharge Diagnosis Discharge Diagnosis Plan C. diff colitis, dehydration, anxiety, hypokalemia. - Complete full course oral vancomycin DS: Summary Hospital Course Reason for hospitalization: C. diff Colitis Hospital Course: Elena Mariee is a 62 year old female who presented with two weeks of ongoing diarrhea and abdominal pain, with interval development of fever at home. She had completed a 5 day keflex course prior to these symptoms. She was found to be C diff positive and notably had >10 stools daily with subsequent electrolyte imbalances (hyponatremia/hypokalemia) and mild dehydration on physical examination. Elena was treated with oral vancomycin and has had improvement in her frequency of stools and improvement in the abdominal pain. She is tolerating oral diet well. On morning of discharge she has been 10 hours without a diarrheal episode. She states she will be able to obtain the prescribed medications. We discussed at length contact precautions and s/s to suggest a recurrence. She verbalized understanding that if she has resumption of significant diarrhea she should have further evaluation as recurrence is possible. Status at Discharge Functional status at discharge: independent ambulation Overall status at discharge: patient is back to baseline Time Spent with Patient Time attestation: Total time spent providing and/or coordinating discharge services: Time spent: Greater than 30 minutes Specific discharge activities: Discussed s/s of recurrence. Medication adherence and formulary/pricing. Contact precautions and how to protect others. Exam Narrative: GENERAL APPEARANCE: Appears to be in no acute distress. HEAD: normocephalic atraumatic EYES: PERRL, EOMI. Vision grossly intact. ENT: Hearing grossly intact, no nasal discharge NECK: Neck supple, trachea midline. CARDIAC: Normal S1/S2. Rhythm is regular. No murmurs, rubs, or gallops. No cyanosis or pallor. Extremities are warm and well perfused. LUNGS: Clear to auscultation without rales, rhonchi, wheezing or diminished breath sounds. Respirations even and unlabored. ABDOMEN: BS positive x 4 quadrants. Soft, nondistended, no tenderness to deep palpation.. No guarding or rebound. MSK: No joint tenderness/swelling, fair strength in all extremities. PERIPHERAL VASCULAR: Peripheral pulses palpable. Normal perfusion, cap refill <2 seconds. No edema. NEURO: Follows commands. No focal deficits. SKIN: [place] without lesions or eruptions. PSYCH: Stable, no paranoia or delusional thinking. DS: Data Data Completed and Pending Labs on day of discharge: Labs from last 24 hours 11/30/22 11/30/22 05:04 05:04 WBC 3.9 L RBC 3.77 L Hgb 12.3 Hct 35.8 L MCV 95.0 MCH 32.6 MCHC 34.4 RDW 11.9 Plt Count 202 MPV 9.8 Sodium 135 L Potassium 3.7 Chloride 107 Carbon Dioxide 27 Anion Gap 1 L BUN < 2 L Creatinine 0.50 L Estim Creat Clear Calc 107 Estimated GFR > 60 Glucose 93 Calcium 7.7 L Magnesium 2.1 Total Bilirubin 0.4 AST 26 ALT 22 Alkaline Phosphatase 61 Total Protein 6.0 L Albumin 3.1 L Preliminary micro results at discharge 11/28/22 00:56 Blood Culture - Preliminary Blood 11/28/22 00:56 Blood Culture - Preliminary Blood Imaging Radiologist's impression: CT Abdomen and Pelvis with contrast. History: Abdominal pain. Spiral CT of the abdomen and pelvis was performed after the administration of intravenous contrast. 100 cc of Omnipaque 350 was administered intravenously without complication. Dose reduction technique was used on this scan by utilizing automated exposure control and iterative reconstruction technique. The dose-length product (DLP) was 899.90 mGy-cm. COMPARISON: 10/07/2018 Findings: Scans through the lung bases demonstrate mild atelectatic change. The l
[2022-11-30 10:40] VITALS: BP 113/61; PULSE 67; RESP 14; TEMP 37; O2SAT 100
== END 2022-11-30 13:30 | disposition home or self-care (01) | DRG 372 ==
LOC: ANHED 13:07 → ANH3MEDSUR 15:15 → ANH2MED 20:44
PROVIDERS: Internal Medicine Critical Care Medicine; Physician Assistant; Admitting Provider Family Medicine; Emergency Provider Emergency Medicine; Visit Provider Nurse Practitioner Family
DX: A04.72 Enterocolitis due to Clostridium difficile, not specified as recurrent (principal); E87.1 Hypo-osmolality and hyponatremia; E86.0 Dehydration; E87.6 Hypokalemia; F41.9 Anxiety disorder, unspecified; Z20.822 Contact with and (suspected) exposure to COVID-19; Z80.0 Family history of malignant neoplasm of digestive organs
CPT/HCPCS: 36415; 74177; 80053; 81001; 83690; 83735; 85025; 85027; 87040; 87493; 87636; 96361; 96365; 96366; 96374; 96375; 99285; A9270; G0378; J2270; J2405; J3480; J7030; Q9967

== ENCOUNTER 2022-12-13 11:11 | Inpatient (IN) | payer OTHER, SELFPAY ==
[2022-12-13] VITALS (13 sets, daily range): BP systolic 99–125; BP diastolic 43–70; PULSE 82–116; RESP 13–27; TEMP 37–37.6; O2SAT 94–99
--- NOTE | ~2022-12-13 | US_ITS ---
EXAMINATION: US abdomen limited DATE: 12/13/2022 15:42 INDICATION: Elevated liver function tests TECHNIQUE: Multiple grayscale and Doppler ultrasound images of the abdomen were obtained. COMPARISON: CT abdomen pelvis dated 12/13/2022 FINDINGS: The pancreatic head and body are normal in appearance. The pancreatic tail is not visualized. Liver has normal echogenicity with subtle nodular liver surface contour consistent with cirrhosis. No liver lesion identified. No intrahepatic biliary duct dilation suspected. Portal venous flow was seen in t he hepatopetal, normal direction and has normal Doppler waveform. Gallbladder is nonvisualized with c holecystectomy clips in the gallbladder fossa prior CT. Common bile duct measures 5 mm in diameter wh ich is normal. Visualized inferior vena cava is normal. Visual is portions the right kidney demonstra jose m normal contour and echogenicity with no hydronephrosis. IMPRESSION: 1. Cirrhosis. No intra or extrahepatic biliary ductal dilation. Reviewed, dictated and finalized at location A. TECHNIC TEACHER
--- NOTE | ~2022-12-13 | CT_ITS ---
EXAMINATION: CT abdomen pelvis w con DATE: 12/13/2022 12:41 INDICATION: Abdominal pain. Fever. TECHNIQUE: Computed tomography (CT) of the abdomen and pelvis was performed with 100 mL Omnipaque 350 intravenous contrast. Automated exposure control and iterative reconstruction technique were employe d. The dose-length product was 1024.87 mGy-cm. COMPARISON: CT abdomen and pelvis 11/27/2022 FINDINGS: The visualized portions of the lung bases demonstrate mild atelectasis. A calcified right l mitch nodule is consistent with old granulomatous disease. No pleural effusion. The heart size is denny l. No pericardial effusion. The liver demonstrates hypertrophy of left lateral segment and surface no dularity, consistent with cirrhosis. There are cysts in the liver measuring up to 8 mm. There are agnes nges of cholecystectomy. The spleen is normal in size. The pancreas, adrenal glands, and kidneys are normal. There is diffuse wall thickening of the colon, consistent with colitis. There are changes of appendectomy. Paraesophageal varices are noted. There are no pathologically enlarged lymph nodes. The re is no free intraperitoneal fluid. There is mild lumbar spondylosis. IMPRESSION: 1. Pancolitis. 2. Cirrhosis of the liver with portal venous hypertension. Reviewed, dictated and finalized at location A. MASTER
--- NOTE | 2022-12-13 11:27 | ECG_ITS ---
Measurements Intervals [place] Rate: 107 P: 47 CA: 154 QRS: 33 QRSD: 84 T: 60 QT: 361 QTc: 483 Interpretive Statements SINUS TACHYCARDIA POSSIBLE LEFT ATRIAL ENLARGEMENT [-0.1mV P-WAVE IN V1/V2] NONSPECIFIC ST AND T WAVE ABNORMALITY ABNORMAL RHYTHM ECG COMPARED TO ECG 02/21/2019 12:48:57 SINUS TACHYCARDIA NOW PRESENT Electronically Signed On 12-13-2022 16:14:49 FURNACE COMBUSTION ANALYST by Yeny Hernandez M.D.
[2022-12-13 11:50] LABS: Basophils Absolute Auto 0.1 K/mm3 (0.0-0.1); Basophils Percent Auto 0.4 % (0.2-1.2); Eosinophils Percent Auto 0.1 % (0-4.4); Hematocrit 42.3 % (37.0-47.0); Hemoglobin 14.8 g/dL (12.0-15.0); Immature Granulocyte Absolute 0.11 K/mm3 (0.00-0.031); Immature Granulocyte Percent A 0.6 % (0-0.5); Lymphocytes Absolute Auto 0.77 K/mm3 (0.9-3.2); Lymphocytes Percent Auto 3.9 % (18.3-44.2); Mean Corpuscular Hemoglobin 32.9 pg (26-34); Mean Platelet Volume 10.1 fl (7.4-10.4); Monocytes Absolute Auto 1.2 K/mm3 (0.1-0.6); Monocytes Percent Auto 6.2 % (2.6-8.5); Neutrophils Absolute Auto 17.6 K/mm3 (1.3-6.7); Neutrophils Percent Auto 88.8 % (45.5-73.1); Platelet Count Result 237 k/mm3 (150-375); Red Cell Distribution Width 12.2 % (11.5-14.5); White Blood Count 19.9 K/mm3 (4.5-10.0)
[2022-12-13 12:01] LABS: Alanine Aminotransferase 40 U/L (6-35); Alkaline Phosphatase 83 U/L (38-126); Anion Gap 12 mmol/L (8-16); Aspartate Amino Transferase 42 U/L (14-36); Bilirubin,Total 2.3 mg/dL (0.2-1.3); Blood Urea Nitrogen 11 mg/dL (7-17); Calcium 8.2 mg/dL (8.4-10.2); Carbon Dioxide 19 mmol/L (22-30); Chloride 105 mmol/L (98-107); Estimated CRCL calculation 96 ml/min; Estimated Glomerular Filt Rate > 60; Glucose 134 mg/dL (65-110); Lipase 22 U/L (23-300); Potassium 3.9 mmol/L (3.4-5.0); Sodium 136 mmol/L (137-145)
[2022-12-13 12:17] LABS: Appearance Urine Clear (Clear); Bilirubin Urine 1+ (Negative); Blood Urine 1+ (Negative); Color Urine Yellow (Yellow); Glucose Urine UA Negative (Negative); Ketones Urine Trace mg/dL (Negative); Leukocyte Esterase Ur Trace LEU/UL (Negative); Nitrate Urine Positive (Negative); Protein Urine 2+ mg/dL (Negative); Urobilinogen Urine 0.2 mg/dL (<2.0)
[2022-12-13 12:19] LABS: Bacteria Urine Trace /hpf; Mucus Urine Heavy /lpf; Squamous Epithelial Cell Urine Many /hpf (Few)
[2022-12-13 12:21] LABS: Add Urine Microscopic? YES
--- NOTE | 2022-12-13 12:35 | ED.GENADULT ---
HPI - General Adult General Chief complaint: Nausea/Vomiting/Diarrhea Stated complaint: sent in Time Seen by Provider: 12/13/22 11:26 Source: RN notes reviewed History of Present Illness HPI narrative: Patient presents emergency room from home for diarrhea. Patient states that she was admitted to [facility] and discharged on 30 November following a diagnosis of C. difficile states that it was felt that her C. difficile is likely from taking Keflex. She been discharged on p.o. vancomycin for 7 days following discharge which she had been taking. States that she had been feeling well with taking the vancomycin she states that when she quit the vancomycin she began to have diarrhea again and began to have abdominal pain and fever starting yesterday with a temperature up to 101 yesterday states abdominal pain is across the lower abdomen is described as sharp and stabbing in nature states it does not radiate. She denies any vomiting she denies any chest pain or shortness of breath Related Data Home Medications Medication Instructions Recorded Confirmed fluoxetine 20 mg capsule 20 mg PO DAILY 07/02/20 11/27/22 gabapentin 600 mg tablet 300 mg PO EVERY OTHER DAY 07/02/20 11/27/22 Lactobacillus 1 cap PO DAILY 11/27/22 11/27/22 acidophilus-Bifidobac.animalis 2.5 billion cell capsule (Daily Probiotic) Women's Daily Multivitamin 1 tablet PO DAILY 11/27/22 11/27/22 Allergies Allergy/AdvReac Type Severity Reaction Status Date / Time sulfamethizole Allergy Mild Hives Verified 12/13/22 11:36 sulfamethoxazole Allergy Mild Hives Verified 12/13/22 11:36 trimethoprim Allergy Mild Hives Verified 12/13/22 11:36 morphine AdvReac Headache Verified 12/13/22 11:36 Review of Systems Review of Systems: Gen.: Reports fevers ENT: Denies congestion Respiratory: Denies shortness of breath or cough CV: Denies chest pain or palpitations GI: See HPI Musculoskeletal: Denies back pain or muscle pain Neuro: Denies numbness, tingling, weakness or focal weakness Skin: Denies rash Except as documented, all other systems reviewed and negative PMF Past Medical History Medical History Anxiety Migraines Mucinous cystadenoma of appendix Surgical History Surgical History (Updated 11/27/22 @ 23:04 by Althea Reyna PA-C) History of cataract removal with insertion of prosthetic lens History of cholecystectomy History of colonoscopy History of hysterectomy History of laparoscopic appendectomy (08/2015) History of right inguinal hernia repair (10/2015) Laparoscopic repair with mesh in 10/2015. Open repair with mesh for recurrent hernia in 02/2016. Family History Family History Father Chronic obstructive pulmonary disease Colon cancer Prostate carcinoma Lung cancer Liver cancer Mother Diabetes mellitus Grandparent Diabetes mellitus Prostate carcinoma Sibling Prostate carcinoma Social History Social History Social History: Surrogate medical decision maker: Dereje Mariee, spouse. Code status: Full code. Smoking status: Never smoker Alcohol intake: never Substance use: never Lack of Transportation: No Lack of Food: Never True Current Housing: I Have Housing Concerned About Future Housing: No Difficulty Paying Gas/Electric Bills: No Difficulty Paying for Meds: No Currently Unemployed: No Education: Associate Degree Difficulty w/ Childcare or Family Care: No Additional living arrangements comments: Lives with spouse in [place]. Additional occupation/education comments: Retired. Spiritual care concerns: No Exam Narrative: APPEARANCE: No acute distress, nontoxic, resting in bed EYES: EOMI HEENT: Normocephalic, atraumatic, OMM RESPIRATORY: No respiratory distress Clear to auscultation bilaterally with no rhonchi
[2022-12-13] MEDS: SODIUM CHLORIDE 0.9% IV 1,000 ML 999 ML IV CONT ×2 (12:49→13:38)
[2022-12-13] MEDS: HYDROmorphone HCL INJ (*CRX) 1 MG/ML SYR 0.5 MG IV PUSH ×2 (12:49→13:59)
[2022-12-13] MEDS: FIDAXOMICIN 200 MG TABLET PO ×2 (13:37→20:43)
[2022-12-13 13:55] LABS: Influenza A QL RT-PCR Negative (Negative); Influenza B QL RT-PCR Negative (Negative); SARS-CoV-2 RNA PCR Negative
[2022-12-13] MEDS: ONDANSETRON INJ 4 MG/2 ML VIAL IV PUSH (13:59)
--- NOTE | 2022-12-13 14:00 | PM.IMHP ---
H&P: HPI History of Present Illness Date/Time: 12/13/22 14:00 Chief Complaint: Diarrhea. 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 Patient provides the following history. She is known to myself and the hospitalist service from a recent admission on 11/27/2022 for C diff colitis attributed to cephalexin which she took a couple weeks prior to admission for urinary tract infection. She was hydrated and started on p.o. vancomycin with improvement in symptoms and she was discharged on the on vancomycin to complete a 10 day course. Her diarrhea slowed down to 4 to 5 times a day however over the last couple of days she has once again started to have upwards of 15 episodes of diarrhea day occasionally admixed with a small amount of blood and mucus. In the last 24 hours she has developed diffuse abdominal cramping, nausea, chills, and temperature up to 101?. She is feeling generally weak and unwell and came in for evaluation. She was afebrile on arrival to the ED with stable blood pressures. Pertinent labs include a WBC of 19.9, sodium 136, potassium 3.9, serum carbon dioxide 19, Emergency department. total bilirubin 2.3, AST 42, ALT 40, lactic acid 2.0. Pancolitis and findings suggestive of cirrhosis with portal venous hypertension (not documented on previous CT) noted on CT. She is being admitted in this setting for further treatment and observation. Review of Systems Review of Systems: Twelve systems were reviewed. Reports generalized weakness without focal findings. No cold or flu symptoms. No sick contacts. No chest pain or shortness of breath. No cough. No dysuria or other urinary symptoms. No known history of liver disease. She denies rash, pruritus, and jaundice. No easy bruising or bleeding. Except as documented, all other systems were reviewed and are negative. [facility] Past Medical History Medical History (Updated 12/13/22 @ 14:36 by Althea Reyna PA-C) Anxiety C. difficile colitis (11/2022) Migraines Mucinous cystadenoma of appendix Surgical History Surgical History (Updated 11/27/22 @ 23:04 by Althea Reyna PA-C) History of cataract removal with insertion of prosthetic lens History of cholecystectomy History of colonoscopy History of hysterectomy History of laparoscopic appendectomy (08/2015) History of right inguinal hernia repair (10/2015) Laparoscopic repair with mesh in 10/2015. Open repair with mesh for recurrent hernia in 02/2016. Family History Family History Father Chronic obstructive pulmonary disease Colon cancer Prostate carcinoma Lung cancer Liver cancer Mother Diabetes mellitus Grandparent Diabetes mellitus Prostate carcinoma Sibling Prostate carcinoma Social History Social History Social History: Surrogate medical decision maker: Dereje Mairee, spouse. Code status: Full code. Smoking status: Never smoker Alcohol intake: never Substance use: never Lack of Transportation: No Lack of Food: Never True Current Housing: I Have Housing Concerned About Future Housing: No Difficulty Paying Gas/Electric Bills: No Difficulty Paying for Meds: No Currently Unemployed: No Education: Bachelor's Degree Difficulty w/ Childcare or Family Care: No Additional living arrangements comments: Lives with spouse in [place]. Additional occupation/education comments: Retired. Spiritual care concerns: No Meds Home Medications and Allergies Home Medications Medication Instructions Recorded Confirmed Type fluoxetine 20 mg capsule 20 mg PO DAILY 07/02/20 12/13/22 History gabapentin 600 mg tablet 300 mg PO EVERY OTHER DAY 07/02/20 12/13/22
[2022-12-13] MEDS: ACETAMINOPHEN 325 MG TABLET 650 MG PO (14:45)
[2022-12-13] MEDS: LACTATED RINGERS 1,000 ML 100 ML IV CONT ×2 (14:46→23:58)
[2022-12-13] MEDS: HYDROcodone/acetaminophen (*CRX) 5-325 MG TABLET 1 TAB PO (18:37)
[2022-12-13] MEDS: GABAPENTIN 300 MG CAPSULE PO (23:20)
[2022-12-14] MEDS: HYDROcodone/acetaminophen (*CRX) 5-325 MG TABLET 1 TAB PO ×6 (00:07→23:49)
[2022-12-14 05:32] LABS: Basophils Absolute Auto 0.1 K/mm3 (0.0-0.1); Basophils Percent Auto 0.6 % (0.2-1.2); Eosinophils Absolute Auto 0.2 K/mm3 (0-0.3); Eosinophils Percent Auto 2.3 % (0-4.4); Hemoglobin 12.4 g/dL (12.0-15.0); Immature Granulocyte Absolute 0.02 K/mm3 (0.00-0.031); Immature Granulocyte Percent A 0.2 % (0-0.5); Lymphocytes Percent Auto 16.1 % (18.3-44.2); Mean Corpuscular HGB Conc 34.4 g/dl (32-36); Mean Corpuscular Hemoglobin 33.8 pg (26-34); Mean Corpuscular Volume 98.1 fl (80-100); Mean Platelet Volume 9.7 fl (7.4-10.4); Monocytes Absolute Auto 0.8 K/mm3 (0.1-0.6); Monocytes Percent Auto 7.4 % (2.6-8.5); Neutrophils Absolute Auto 7.8 K/mm3 (1.3-6.7); Neutrophils Percent Auto 73.4 % (45.5-73.1); Platelet Count Result 158 k/mm3 (150-375); Red Blood Count 3.67 M/mm3 (4.2-5.4); Red Cell Distribution Width 12.2 % (11.5-14.5); White Blood Count 10.6 K/mm3 (4.5-10.0)
[2022-12-14 05:41] LABS: Alanine Aminotransferase 30 U/L (6-35); Albumin Level 3.3 g/dL (3.5-5.1); Alkaline Phosphatase 60 U/L (38-126); Anion Gap 4 mmol/L (8-16); Aspartate Amino Transferase 30 U/L (14-36); Bilirubin,Total 1.1 mg/dL (0.2-1.3); Blood Urea Nitrogen 9 mg/dL (7-17); Calcium 7.5 mg/dL (8.4-10.2); Carbon Dioxide 25 mmol/L (22-30); Chloride 106 mmol/L (98-107); Estimated CRCL calculation 113 ml/min; Estimated Glomerular Filt Rate > 60; Glucose 104 mg/dL (65-110); Potassium 3.2 mmol/L (3.4-5.0); Sodium 135 mmol/L (137-145)
[2022-12-14 05:43] LABS: INR 1.3; Prothrombin Time 15.5 Seconds (11.1-14.7)
[2022-12-14 05:44] LABS: Partial Thromboplastin Time 39.8 SECONDS (22.3-36.8)
[2022-12-14 06:00] VITALS: BP 119/56; PULSE 76; RESP 18; TEMP 37.1; O2SAT 95
[2022-12-14 06:51] LABS: Hepatitis B Surface Antigen Negative (Negative)
[2022-12-14 06:56] LABS: HAV RESULT Negative (Negative); Hepatitis B Core IgM Result Negative (Negative)
[2022-12-14 07:08] LABS: Hepatitis C Virus Antibody Negative (Negative)
[2022-12-14] MEDS: MULTIVITAMINS THERAPEUTIC TAB (*BKC) 1 TABLET PO (08:43)
[2022-12-14] MEDS: FIDAXOMICIN 200 MG TABLET PO ×2 (08:43→20:48)
[2022-12-14] MEDS: FLUoxetine HCL 20 MG CAPSULE PO (08:43)
[2022-12-14] MEDS: ACIDOPHILUS/BULGARICUS CHEWABLE TABLET 1 TABLET PO (08:43)
[2022-12-14] MEDS: POTASSIUM CHLORIDE 20 MEQ TABLET 60 MEQ PO (09:22)
[2022-12-14 10:31] VITALS: O2SAT 97
--- NOTE | 2022-12-14 11:13 | PC.NURSE ---
On 12/14/22, the student, [Grace Arambula], provided care and completed [facility] on this patient. I have reviewed the student's documentation and agree with the findings.
[2022-12-14 11:45] LABS: Magnesium 1.9 mg/dL (1.6-2.3)
[2022-12-14 12:54] VITALS: BMI 33.7
[2022-12-14 13:55] VITALS: BP 112/62; PULSE 79; RESP 18; TEMP 36.9; O2SAT 95
--- NOTE | 2022-12-14 15:02 | PM.IMPN ---
Progress Note: A&P Assessment and Plan (1) C. difficile colitis: Code(s): A04.72 - Enterocolitis due to Clostridium difficile, not specified as recurrent Status: Acute Assessment and Plan: CT shows gómez colitis which consistent with C diff colitis She was previously treated with 10 days oral Vancomycin. She has been started on fidaxomicin. (2) Sepsis: Code(s): A41.9 - Sepsis, unspecified organism Status: Acute Assessment and Plan: She meets sepsis criteria with fever and leukocytosis in the setting of C diff colitis. Treated with IV fluids. Blood pressures have been stable. Lactic acid level is within normal limits. No acute organ dysfunction noted. CT shows gómez colitis which consistent with C diff colitis (3) Transaminitis: Code(s): R74.01 - Elevation of levels of liver transaminase levels Status: Acute Assessment and Plan: LFTs are a bit elevated, may very well be related to C diff infection. Right upper quadrant ultrasound also suggests cirrhosis without biliary duct dilation. CT with pancolitis and cirrhosis with suggested portal venous hypertension. Hepatitis panel negative. Findings were discussed with the patient she is aware that she will need to have this followed up as an outpatient. Trend LFTs. (4) Abnormal liver CT: Code(s): R93.2 - Abnormal findings on diagnostic imaging of liver and biliary tract Status: Acute Assessment and Plan: As above. (5) Abnormal urinalysis: Code(s): R82.90 - Unspecified abnormal findings in urine Status: Acute Assessment and Plan: UA positive for nitrates, trace leukocytes, >75 WBC, but also many epi cells suggesting contamination. Hold antibiotics for now. Urine culture pending. (6) Murmur: Code(s): R01.1 - Cardiac murmur, unspecified Status: Acute Assessment and Plan: Faint systolic murmur RSB and apex noted. No radiation. She reports intermittent episodes of dizziness with repositioning. Check Echocardiogram. Plan CODE STATUS: FULL CODE Disposition: home when stable. 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 She presented to the ED from home for evaluation of recurrent abdominal pain and diarrhea. She was discharged home on 11/30/22 on oral vancomycin for 10 days. She reported the return of symptoms following completion of vancomycin course. She reports at least 12 small squirts of stool today from 0500 to noon today. She has some lower abdominal cramping, but no nausea or emesis. She is tolerating small meals. Oral Sawyer tablets help with the pain. No dizziness, chest pain, SOB or palpitations. Review of Systems Review of Systems: All systems reviewed & are unremarkable except as noted in HPI and below Exam Narrative: General: tired-appearing female in the semi-Guillaume position in bed. HEENT: PERRL, EOMI. Sclera anicteric. Moist mucous membranes. Normocephalic. Neck: Supple. Respiratory: Lungs are clear to auscultation bilaterally. Respirations regular and unlabored. Cardiovascular: Regular rate and rhythm with S1-S2. 1/6 systolic murmur LSB. Gastrointestinal: Abdomen is soft and nondistended with hyperactive bowel sounds. tender to palpation and percussion throughout the abdomen. No guarding or rebound tenderness. Skin: Warm and dry. No rash or lesions. Extremities: No cyanosis, clubbing, or edema. Radial and pedal pulses intact. Neurological: Alert, oriented x4. Cranial nerves 2-12 are grossly intact. No gross focal deficits to casual conversation. Psychiatric: Pleasant and cooperative with normal mood and affect. Objective Data Vital Signs Vital Signs: Kortney
[2022-12-14 21:03] VITALS: BP 123/44; PULSE 68; RESP 18; TEMP 36.3; O2SAT 99
--- NOTE | 2022-12-15 | ECHO_ITS ---
Patient Info Name: Elena Mariee Age: 62 years : 1960 Gender: Female Ht: 67 in Wt: 215 lbs BSA: 2.18 m2 HR: 78 bpm BP: 138 / 76 mmHg Heart Rhythm: Sinus Rhythm Technical Quality: Fair Exam Date: 12/15/2022 2:47 PM Exam Location: [facility] Card Pulmonary Patient Status: Inpatient Admit Date: 12/15/2022 Staff Ordering Physician: Ila Hanley APRN Composition Roll Maker And Cutter: Bea Gonzales RDCS Attending Provider: Vicky Reyes DO Referring Physician: Talon LOCKETT; Exam Type: CA echo doppler color flow Study Info Indications R01.1 - Cardiac murmur, unspecified Complete two-dimensional, color flow and Doppler transthoracic echocardiogram is performed. Summary 1. Complete two-dimensional, color flow and Doppler transthoracic echocardiogram is performed. 2. Left ventricular chamber dimension is normal. 3. Left ventricular systolic function is normal, estimated at 60-65%. 4. The left ventricular diastolic function is grade I diastolic dysfunction. 5. E/e' 16 is elevated. 6. There is mild mitral valve regurgitation. 7. There is trace tricuspid valve regurgitation. 8. No pulmonary hypertension, estimated pulmonary arterial systolic pressure is 25 mmHg. Left Ventricle E/e' 16 is elevated. Left ventricular chamber dimension is normal. Left ventricular systolic function is normal, estimated at 60-65%. The left ventricular diastolic function is grade I diastolic dysfunction. Right Ventricle Right ventricular systolic function is normal and with normal TAPSE 1.9 cm. Right ventricular chamber dimension is normal. Left Atria Left atrial chamber dimension is normal. Right Atria Right atrial chamber dimension is normal. Aortic Valve The aortic valve is trileaflet. There is no aortic valve stenosis. There is no aortic valve regurgitation. Pulmonic Valve There is no pulmonic regurgitation. Mitral Valve There is no mitral valve stenosis. There is mild mitral valve regurgitation. Tricuspid Valve There is trace tricuspid valve regurgitation. No pulmonary hypertension, estimated pulmonary arterial systolic pressure is 25 mmHg. Pericardium/Pleural There is no pericardial effusion. Inferior Vena Cava Normal inferior vena cava with >50% collapse upon inspiration consistent with normal right atrial pressure, 5 mmHg. Aorta The aortic root size at the sinus of Valsalva is normal. Left Ventricular Outflow Tract Name Value Normal LVOT 2D LVOT Diameter 2.0 cm LVOT Doppler LVOT Peak Gradient 5 mmHg LVOT Mean Gradient 2 mmHg LVOT VTI 24 cm LVOT VTI/AV VTI Ratio 0.7 LVOT Stroke Volume 74 ml LVOT CO 4.2 l/min LVOT CI 1.9 l/min/m2 Pulmonic Valve Name Value Normal RVOT Doppler
[2022-12-15] MEDS: HYDROcodone/acetaminophen (*CRX) 5-325 MG TABLET 1 TAB PO ×5 (05:26→22:14)
[2022-12-15 05:32] VITALS: BP 138/76; PULSE 78; RESP 18; TEMP 36.8; O2SAT 94
[2022-12-15 05:34] LABS: Anion Gap 5 mmol/L (8-16); Blood Urea Nitrogen 5 mg/dL (7-17); Calcium 8.2 mg/dL (8.4-10.2); Carbon Dioxide 24 mmol/L (22-30); Chloride 106 mmol/L (98-107); Estimated CRCL calculation 117 ml/min; Estimated Glomerular Filt Rate > 60; Glucose 91 mg/dL (65-110); Magnesium 2.1 mg/dL (1.6-2.3); Phosphorus 3.6 mg/dL (2.5-4.5); Potassium 3.8 mmol/L (3.4-5.0); Sodium 135 mmol/L (137-145)
[2022-12-15 06:00] LABS: Basophils Absolute Auto 0.1 K/mm3 (0.0-0.1); Basophils Percent Auto 0.9 % (0.2-1.2); Eosinophils Absolute Auto 0.3 K/mm3 (0-0.3); Eosinophils Percent Auto 5.3 % (0-4.4); Hematocrit 36.3 % (37.0-47.0); Hemoglobin 12.8 g/dL (12.0-15.0); Immature Granulocyte Absolute 0.02 K/mm3 (0.00-0.031); Immature Granulocyte Percent A 0.3 % (0-0.5); Lymphocytes Absolute Auto 1.93 K/mm3 (0.9-3.2); Lymphocytes Percent Auto 33.3 % (18.3-44.2); Mean Corpuscular HGB Conc 35.3 g/dl (32-36); Mean Corpuscular Hemoglobin 33.8 pg (26-34); Mean Corpuscular Volume 95.8 fl (80-100); Monocytes Absolute Auto 0.4 K/mm3 (0.1-0.6); Monocytes Percent Auto 7.1 % (2.6-8.5); Neutrophils Absolute Auto 3.1 K/mm3 (1.3-6.7); Neutrophils Percent Auto 53.1 % (45.5-73.1); Platelet Count Result 196 k/mm3 (150-375); Red Blood Count 3.79 M/mm3 (4.2-5.4); Red Cell Distribution Width 12.2 % (11.5-14.5); White Blood Count 5.8 K/mm3 (4.5-10.0)
[2022-12-15] MEDS: FIDAXOMICIN 200 MG TABLET PO ×2 (08:34→21:10)
[2022-12-15] MEDS: ACIDOPHILUS/BULGARICUS CHEWABLE TABLET 1 TABLET PO (08:34)
[2022-12-15] MEDS: MULTIVITAMINS THERAPEUTIC TAB (*BKC) 1 TABLET PO (08:34)
[2022-12-15] MEDS: FLUoxetine HCL 20 MG CAPSULE PO (08:34)
--- NOTE | 2022-12-15 14:13 | PM.IMPN ---
Progress Note: A&P Assessment and Plan (1) C. difficile colitis: Code(s): A04.72 - Enterocolitis due to Clostridium difficile, not specified as recurrent Status: Acute Assessment and Plan: CT shows gómez colitis which consistent with C diff colitis She was previously treated with 10 days oral Vancomycin. She has been started on fidaxomicin. Symptoms unchanged to minimally better than yesterday. Worsening pain and loose stool after eating. change to low residue diet and add Bentyl PRN QID. (2) Sepsis: Code(s): A41.9 - Sepsis, unspecified organism Status: Acute Assessment and Plan: She meets sepsis criteria with fever and leukocytosis in the setting of C diff colitis. Treated with IV fluids. Blood pressures have been stable. Lactic acid level is within normal limits. No acute organ dysfunction noted. CT shows gómez colitis which consistent with C diff colitis (3) Transaminitis: Code(s): R74.01 - Elevation of levels of liver transaminase levels Status: Acute Assessment and Plan: LFTs are a bit elevated, may very well be related to C diff infection. Right upper quadrant ultrasound also suggests cirrhosis without biliary duct dilation. CT with pancolitis and cirrhosis with suggested portal venous hypertension. Hepatitis panel negative. Findings were discussed with the patient she is aware that she will need to have this followed up as an outpatient. Trend LFTs. (4) Abnormal liver CT: Code(s): R93.2 - Abnormal findings on diagnostic imaging of liver and biliary tract Status: Acute Assessment and Plan: As above. (5) Abnormal urinalysis: Code(s): R82.90 - Unspecified abnormal findings in urine Status: Acute Assessment and Plan: UA positive for nitrates, trace leukocytes, >75 WBC, but also many epi cells suggesting contamination. Hold antibiotics for now. Urine culture with mixed radha. (6) Murmur: Code(s): R01.1 - Cardiac murmur, unspecified Status: Acute Assessment and Plan: Faint systolic murmur RSB and apex noted. No radiation. She reports intermittent episodes of dizziness with repositioning. Echocardiogram pending. check orthostatic vitals. Plan CODE STATUS: FULL CODE Disposition: home when stable. 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 She presented to the ED from home for evaluation of recurrent abdominal pain and diarrhea. She was discharged home on 11/30/22 on oral vancomycin for 10 days. She reported the return of symptoms following completion of vancomycin course. She had 7 BMs this morning following breakfast and continues to c/o lightheadedness and lower abdominal pain. No nausea, vomiting, chest pain, SOB, or palpitations. She denies melena or hematochezia. Review of Systems Review of Systems: All systems reviewed & are unremarkable except as noted in HPI and below Exam Narrative: General: tired-appearing. lying in bed. No acute distress. HEENT: PERRL, EOMI. Sclera anicteric. Moist mucous membranes. Normocephalic. Neck: Supple. Respiratory: Lungs are clear to auscultation bilaterally. Respirations regular and unlabored. Cardiovascular: Regular rate and rhythm with S1-S2. 1/6 systolic murmur LSB. Gastrointestinal: Abdomen is soft and nondistended with normoactive bowel sounds. tender to palpation throughout the abdomen, but more notably to RLQ and LLQ. No guarding or rebound tenderness. Skin: Warm and dry. No rash or lesions. Extremities: No cyanosis, clubbing, or edema. Radial and pedal pulses intact. Neurological: Alert, oriented x4. No gross focal deficits. Psychiatric: Pleasant and coop
[2022-12-15 14:35] VITALS: BP 104/63; PULSE 62; RESP 14; TEMP 36.6; O2SAT 99
[2022-12-15 14:38] VITALS: BP 107/60; PULSE 61
[2022-12-15 14:42] VITALS: BP 112/61; PULSE 62
[2022-12-15] MEDS: DICYCLOMINE HCL 10 MG CAPSULE 20 MG PO ×2 (16:09→22:14)
[2022-12-15 20:23] VITALS: BP 106/66; PULSE 63; RESP 20; TEMP 36.8; O2SAT 100
[2022-12-15 20:40] LABS: Glucose Point of Care 105 mg/dl (65-105)
[2022-12-15] MEDS: GABAPENTIN 300 MG CAPSULE PO (21:10)
[2022-12-15 21:22] VITALS: O2SAT 99
[2022-12-16] MEDS: HYDROcodone/acetaminophen (*CRX) 5-325 MG TABLET 1 TAB PO ×3 (02:38→10:35)
[2022-12-16] MEDS: DICYCLOMINE HCL 10 MG CAPSULE 20 MG PO ×2 (04:45→13:25)
[2022-12-16 05:45] LABS: Basophils Percent Auto 0.7 % (0.2-1.2); Eosinophils Absolute Auto 0.3 K/mm3 (0-0.3); Eosinophils Percent Auto 6.7 % (0-4.4); Hemoglobin 12.4 g/dL (12.0-15.0); Immature Granulocyte Absolute 0.02 K/mm3 (0.00-0.031); Immature Granulocyte Percent A 0.5 % (0-0.5); Lymphocytes Absolute Auto 1.91 K/mm3 (0.9-3.2); Lymphocytes Percent Auto 43.8 % (18.3-44.2); Mean Corpuscular HGB Conc 33.5 g/dl (32-36); Mean Corpuscular Volume 98.4 fl (80-100); Mean Platelet Volume 10.3 fl (7.4-10.4); Monocytes Absolute Auto 0.4 K/mm3 (0.1-0.6); Monocytes Percent Auto 8.3 % (2.6-8.5); Neutrophils Absolute Auto 1.8 K/mm3 (1.3-6.7); Platelet Count Result 159 k/mm3 (150-375); Red Blood Count 3.76 M/mm3 (4.2-5.4); Red Cell Distribution Width 12.2 % (11.5-14.5); White Blood Count 4.4 K/mm3 (4.5-10.0)
[2022-12-16 05:58] LABS: Alanine Aminotransferase 30 U/L (6-35); Albumin Level 3.5 g/dL (3.5-5.1); Alkaline Phosphatase 63 U/L (38-126); Anion Gap 5 mmol/L (8-16); Aspartate Amino Transferase 35 U/L (14-36); Bilirubin,Total 0.6 mg/dL (0.2-1.3); Blood Urea Nitrogen 4 mg/dL (7-17); Calcium 8.2 mg/dL (8.4-10.2); Carbon Dioxide 27 mmol/L (22-30); Chloride 104 mmol/L (98-107); Estimated CRCL calculation 117 ml/min; Estimated Glomerular Filt Rate > 60; Glucose 93 mg/dL (65-110); Potassium 3.4 mmol/L (3.4-5.0); Sodium 136 mmol/L (137-145)
[2022-12-16 06:00] VITALS: BP 101/49; PULSE 58; RESP 20; TEMP 37; O2SAT 99
[2022-12-16 08:10] VITALS: O2SAT 99
--- NOTE | 2022-12-16 08:27 | PM.DS ---
DS: Admitting Diagnosis Discharge Date 12/16/2022 1354 Admitting Diagnosis C. difficile colitis Sepsis Transaminitis Abnormal liver CT Abnormal urinalysis DS: Discharge Diagnosis Discharge Diagnosis (1) C. difficile colitis: Code(s): A04.72 - Enterocolitis due to Clostridium difficile, not specified as recurrent Status: Acute (2) Sepsis: Code(s): A41.9 - Sepsis, unspecified organism Status: Acute (3) Transaminitis: Code(s): R74.01 - Elevation of levels of liver transaminase levels Status: Acute (4) Abnormal liver CT: Code(s): R93.2 - Abnormal findings on diagnostic imaging of liver and biliary tract Status: Acute (5) Abnormal urinalysis: Code(s): R82.90 - Unspecified abnormal findings in urine Status: Acute (6) Murmur: Code(s): R01.1 - Cardiac murmur, unspecified Status: Acute DS: Summary Hospital Course Reason for hospitalization: Diarrhea Hospital Course: Elena Mariee is a 62-year-old female with recent hospitalization for cdiff colitis and history of hernia repair with mesh, 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 She presented to the ED from home for evaluation of recurrent abdominal pain and diarrhea. She was discharged home on 11/30/22 on oral vancomycin for 7 more days (10 days total), which she completed. She reported the return of symptoms following completion of vancomycin course. (1) C. difficile colitis CT showed gómez colitis which is consistent with C diff colitis She was previously treated with 10 days oral Vancomycin. started on fidaxomicin upon admission x 10 days total. Abdominal pain treated with Bentyl and Oxford PRN. Improved and patient tolerating diet. (2) Sepsis meets sepsis criteria with fever and leukocytosis in the setting of C diff colitis. Treated with IV fluids initially. Blood pressures have been stable. Lactic acid level is within normal limits. No acute organ dysfunction noted. (3) Transaminitis (4) Suspected liver cirrhosis and presumed underlying MOHR LFTs are a bit elevated on admission, may very well be related to C diff infection. Right upper quadrant ultrasound also suggests cirrhosis without biliary duct dilation. CT with pancolitis and cirrhosis with suggested portal venous hypertension. Hepatitis panel negative. Findings were discussed with the patient, she is aware that she will need to have this followed up as an outpatient. Transaminitis resolved. Discussed weight loss and low fat diet. (5) Abnormal UA. UA positive for nitrates, trace leukocytes, >75 WBC, but also many epi cells suggesting contamination. Hold antibiotics for now. Urine culture with mixed radha. UTI ruled out. (6) Murmur Faint systolic murmur RSB and apex noted. No radiation. She reports intermittent episodes of dizziness with repositioning. Echocardiogram shows mild mitral regurgitation and trace tricuspid regurgitation. Patient's abdominal pain and loose stool improved. She was tolerating low fiber diet. She was discharged home on Dificid 200 mg PO BID x 7 more days, Bentyl 20 mg PO TID PRN and Oxford 1 tablet PO Q4 hours PRN moderate to severe pain. She was counseled on handwashing, completing antibiotic and when to seek further care. She will follow up with PCP for further evaluation. Status at Discharge Cognitive/behavioral status at discharge: Alert and oriented x 4, baseline Functional status at discharge: independent ambulation Overall status at discharge: patient is progressing back to baseline Time Spent with Patient Time attestation: Total time spent providing and/or coordinating discharge services: Time spent: Greater than 30 minutes Exam Narrative: General: tired-appearing. lying in bed. No acute distress. Temp 98.6F, HR 58, RR 20, BP 101/49, spo2 99% RA. weight 96.4kg HEENT: PERRL, EOMI. Sclera anicteric. Moist mucous membranes. Normocephalic. Neck: Supple. Respirat
[2022-12-16] MEDS: FLUoxetine HCL 20 MG CAPSULE PO (08:49)
[2022-12-16] MEDS: FIDAXOMICIN 200 MG TABLET PO (08:49)
[2022-12-16] MEDS: ACIDOPHILUS/BULGARICUS CHEWABLE TABLET 1 TABLET PO (08:50)
[2022-12-16] MEDS: MULTIVITAMINS THERAPEUTIC TAB (*BKC) 1 TABLET PO (08:50)
[2022-12-16 13:07] LABS: Cholesterol 154 mg/dL (0-200); HDL Direct 33 mg/dL; Triglycerides 73 mg/dL (<150)
[2022-12-16 13:17] LABS: LDL Cholesterol Direct 93 mg/dL
== END 2022-12-16 14:20 | disposition home or self-care (01) | DRG 872 ==
LOC: ANHED 13:48 → ANH2MED 13:53
PROVIDERS: Physician Assistant; Admitting Provider Student in an Organized Health Care Education/Training Program; Emergency Provider Emergency Medicine; Visit Provider Nurse Practitioner Family
DX: A41.9 Sepsis, unspecified organism (principal); A04.72 Enterocolitis due to Clostridium difficile, not specified as recurrent; K76.6 Portal hypertension; K75.81 Nonalcoholic steatohepatitis (NASH); K74.60 Unspecified cirrhosis of liver; R82.90 Unspecified abnormal findings in urine; R01.1 Cardiac murmur, unspecified; F41.9 Anxiety disorder, unspecified; Z20.822 Contact with and (suspected) exposure to COVID-19
CPT/HCPCS: 36415; 74177; 76705; 80048; 80053; 80061; 80074; 81001; 82948; 83605; 83690; 83735; 84100; 85025; 85610; 85730; 87040; 87086; 87088; 87636; 93005; 93306; 96361; 96374; 96375; 96376; 99285; A9270; G0378; J1170; J2405; J7030; J7120; Q9967

== ENCOUNTER 2023-01-05 11:22 | Emergency (ER) | payer OTHER, SELFPAY ==
--- NOTE | ~2023-01-05 | XR_ITS ---
EXAMINATION: XR foot LT min 3V DATE: 01/05/2023 11:41 INDICATION: Left foot injury and pain. TECHNIQUE: 4 views of left foot were obtained. COMPARISON: Left foot radiographs 07/02/2020 FINDINGS: There is mild hallux valgus. No fracture. There is mild osteoarthritis of first metatarsoph alangeal joint. There is an enthesophyte at plantar aspect of calcaneal tuberosity. IMPRESSION: 1. Mild hallux valgus. 2. Mild osteoarthritis of first metatarsophalangeal joint. Reviewed, dictated and finalized at location A. 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
[2023-01-05 11:33] VITALS: BP 115/63; PULSE 66; RESP 20; TEMP 36.3; O2SAT 98
--- NOTE | 2023-01-05 11:47 | ED.LOWEXIN ---
HPI - Extremity Injury (Lower) General Chief Complaint: Extremity Injury, Lower Stated Complaint: lt foot injury Source: patient Mode of arrival: ambulatory Limitations: no limitations History of Present Illness HPI Narrative: 62-year-old female presented for complaint of left foot pain and mild swelling after injury yesterday. She states she dropped a cast iron skillet on the foot. Endorses bruising. She has been taking Tylenol. Denies numbness, tingling, weakness of the foot. Related Data Home Medications Medication Instructions Recorded Confirmed fluoxetine 20 mg capsule 20 mg PO DAILY 07/02/20 12/13/22 gabapentin 600 mg tablet 300 mg PO EVERY OTHER DAY 07/02/20 12/13/22 Lactobacillus 1 cap PO DAILY 11/27/22 12/13/22 acidophilus-Bifidobac.animalis 2.5 billion cell capsule (Daily Probiotic) Allergies Allergy/AdvReac Type Severity Reaction Status Date / Time sulfamethizole Allergy Mild Hives Verified 01/05/23 11:51 sulfamethoxazole Allergy Mild Hives Verified 01/05/23 11:51 trimethoprim Allergy Mild Hives Verified 01/05/23 11:51 morphine AdvReac Headache Verified 01/05/23 11:51 Review of Systems Review of Systems: CONSTITUTIONAL: Denies body aches, fever, chills EYES: Denies visual changes ENT: Denies rhinorrhea, congestion CARDIOVASCULAR: Denies chest pain, palpitations, or edema. RESPIRATORY: Denies cough or dyspnea. SKIN: Denies rash, itching, or wounds. MUSCULOSKELETAL:per HPI NEUROLOGIC: Denies headache, numbness, tingling, or weakness. All systems reviewed & are unremarkable except as noted in HPI and below PMFSH Past Medical History Medical History Anxiety C. difficile colitis (11/2022) Migraines Mucinous cystadenoma of appendix Surgical History Surgical History History of cataract removal with insertion of prosthetic lens History of cholecystectomy History of colonoscopy History of hysterectomy History of laparoscopic appendectomy (08/2015) History of right inguinal hernia repair (10/2015) Laparoscopic repair with mesh in 10/2015. Open repair with mesh for recurrent hernia in 02/2016. Family History Family History Father Chronic obstructive pulmonary disease Colon cancer Prostate carcinoma Lung cancer Liver cancer Mother Diabetes mellitus Grandparent Diabetes mellitus Prostate carcinoma Sibling Prostate carcinoma Social History Social History Social History: Surrogate medical decision maker: Dereje Mariee, spouse. Code status: Full code. Smoking status: Never smoker Alcohol intake: never Substance use: never Lack of Transportation: No Lack of Food: Never True Current Housing: I Have Housing Concerned About Future Housing: No Difficulty Paying Gas/Electric Bills: No Difficulty Paying for Meds: No Currently Unemployed: No Education: Bachelor's Degree Difficulty w/ Childcare or Family Care: No Additional living arrangements comments: Lives with spouse in [place]. Additional occupation/education comments: Retired. Spiritual care concerns: No Comments At time of signature, I have reviewed and agree with nursing past medical, surgical, social and family history unless otherwise noted. Please see nursing chart for further information. There is no relevant family history pertinent to the presenting complaint Exam Narrative: GENERAL: Well-appearing CHEST: Speaks in full sentences. No respiratory distress. HEART: Regular rate and rhythm. Normal and equal peripheral pulses. EXTREMITIES: Left foot has normal strength and sensation, normal range of motion endorses mild pain with movement. Mild ecchymosis and swelling to 1st metatarsal, TTP. No open wounds or obvious deformity; alignment normal, pulse palpa
== END 2023-01-05 11:58 | disposition home or self-care (01) ==
PROVIDERS: Emergency Provider Nurse Practitioner Family
DX: S90.32XA Contusion of left foot, initial encounter (principal); W20.8XXA Other cause of strike by thrown, projected or falling object, initial encounter
CPT/HCPCS: 73630; 99213; G0463

== ENCOUNTER 2024-04-03 11:46 | Emergency (ER) | payer OTHER, SELFPAY ==
[2024-04-03 12:01] VITALS: BP 109/62; PULSE 76; RESP 18; TEMP 36.6; O2SAT 98
--- NOTE | 2024-04-03 12:24 | ED.SKABFB ---
HPI - Skin/Abscess/Foreign Bdy General Chief complaint: Skin/Abscess/Foreign Body Stated complaint: rash Source: patient Mode of arrival: ambulatory Limitations: no limitations History of Present Illness HPI narrative: 63-year-old female presented for complaint of itchy rash to arms and legs for about 5 days. She states rash started after staying with family out of town. Reports a history of similar appearing rash which she attributed to their detergent, and says she forgot to bring her own sheets. Has been taking Benadryl, using calamine and hydrocortisone cream without much improvement. Denies lip, tongue, or throat swelling, shortness of breath or wheezing. Denies changes to soap, lotion, or any other exposures. No one else in the house or any contacts with similar symptoms. Related Data Home Medications Medication Instructions Recorded Confirmed fluoxetine 20 mg capsule 20 mg PO DAILY 07/02/20 01/05/23 Allergies Allergy/AdvReac Type Severity Reaction Status Date / Time sulfamethizole Allergy Mild Hives Verified 01/05/23 11:51 sulfamethoxazole Allergy Mild Hives Verified 04/03/24 12:05 trimethoprim Allergy Mild Hives Verified 04/03/24 12:05 morphine AdvReac Headache Verified 04/03/24 12:05 Review of Systems Review of Systems: CONSTITUTIONAL: Denies body aches, fever, chills, or sweats. EYES: Denies visual changes, redness, or discharge. ENT: Denies rhinorrhea, congestion CARDIOVASCULAR: Denies chest pain, palpitations, or edema. RESPIRATORY: Denies cough or dyspnea. GASTROINTESTINAL: Denies abdominal pain, nausea, vomiting, or diarrhea. SKIN: Reports itching/rash MUSCULOSKELETAL: Denies back pain, joint pain, or myalgia. NEUROLOGIC: Denies headache, numbness, tingling, or weakness. [facility] Past Medical History Medical History Anxiety C. difficile colitis (11/2022) Migraines Mucinous cystadenoma of appendix Surgical History Surgical History History of cataract removal with insertion of prosthetic lens History of cholecystectomy History of colonoscopy History of hysterectomy History of laparoscopic appendectomy (08/2015) History of right inguinal hernia repair (10/2015) Laparoscopic repair with mesh in 10/2015. Open repair with mesh for recurrent hernia in 02/2016. Family History Family History Father Chronic obstructive pulmonary disease Colon cancer Prostate carcinoma Lung cancer Liver cancer Mother Diabetes mellitus Grandparent Diabetes mellitus Prostate carcinoma Sibling Prostate carcinoma Social History Social History Social History: Surrogate medical decision maker: Dereje Mariee, spouse. Code status: Full code. Smoking status: Never smoker Alcohol intake: never Substance use: never Lack of Transportation: No Lack of Food: Never True Current Housing: I Have Housing Concerned About Future Housing: No Difficulty Paying Gas/Electric Bills: No Difficulty Paying for Meds: No Currently Unemployed: No Education: Bachelor's Degree Difficulty w/ Childcare or Family Care: No Additional living arrangements comments: Lives with spouse in [place]. Additional occupation/education comments: Retired. Spiritual care concerns: No Comments At time of signature, I have reviewed and agree with nursing past medical, surgical, social and family history unless otherwise noted. Please see nursing chart for further information. There is no relevant family history pertinent to the presenting complaint Exam Narrative: GENERAL: Well-appearing HEAD: Normocephalic, atraumatic. EYES: conjunctivae clear, and EOMI. ENT: Mucous membranes moist. Oropharynx without edema, erythema or lesions. NECK: Supple. No lymphadenopathy CHEST: Clear to auscult
== END 2024-04-03 12:35 | disposition home or self-care (01) ==
PROVIDERS: Emergency Provider Nurse Practitioner Family
DX: L30.9 Dermatitis, unspecified (principal); F41.9 Anxiety disorder, unspecified
CPT/HCPCS: 99213; G0463

== ENCOUNTER 2024-04-29 11:03 | Emergency (ER) | payer OTHER, SELFPAY | END 2024-04-29 11:25 | disposition left against medical advice (07) | DX: M54.9 Dorsalgia, unspecified (principal) | CPT/HCPCS: 99199 ==

== ENCOUNTER 2025-02-17 08:16 | Emergency (ER) | payer OTHER, SELFPAY ==
--- NOTE | ~2025-02-17 | XR_ITS ---
EXAMINATION: XR chest 2V 02/17/2025 08:59 INDICATION: Cough. Covid. PROCEDURE: 2 view chest COMPARISON: 02/21/2019 FINDINGS: The lungs are clear. The cardiomediastinal silhouette is within normal limits. There are no pleural effusions. There is no pneumothorax suspected. IMPRESSION: 1: NO ACUTE CARDIOPULMONARY DISEASE. Reviewed, dictated and finalized at location []
--- OUTSIDE RECORDS SUMMARY | 2025-02-17 08:34 | XMS_ITS | Continuity of Care Document ---
Author Name [facility] Organization [facility] Care Team Providers Care Senior Underwriting Assistant Name Role Phone [facility] Unavailable Unavailable Problems Combined list of problems from Department of Defense and Veterans Affairs facilities. It does not include entries that were removed or entered in error. Problem Status Onset Date Problem Type Date of Resolution Comments Source Mass of subcutaneous tissue of left foot Active 01/23/2025 Diagnosis [facility] Mass of subcutaneous tissue of right foot Active 01/23/2025 Diagnosis [facility] Elbow pain Active 01/23/2025 Diagnosis 0055C[facility] Migraine with aura Active 01/23/2025 Diagnosis [facility] Anxiety disorder Active 01/23/2025 Diagnosis 00 55C[facility] Nodule of lung Active 01/23/2025 Diagnosis 0055 C[facility] Migraine with aura Active 04/29/2019 Condition [facility] Allergic rhinitis Active Condition 0055 C[facility] Anxiety disorder Active Condition 0055[facility] Medications Combined list of outpatient medications from Department of Defense and Veterans Affairs facilities.Medications provided include 1) outpatient medications from the last 15 months, and 2) patient-reported medications. Medication Details Route Status Patient Instructions Prescription Expires Prescription Number Last Dispense Date Ordering Provider Order Date Order Qty Source alfuzosin 10 mg oral tablet, extended release 1 tab(s), Oral, Daily, 10 mg once daily until stone passage or for up to 4 weeks, # 30 tab(s), 0 total refill(s ), [facility], Pharmacy : [facility] #[id number] Oral (given by mouth) Ordered 2023 30.0 0055C-3 [facility] cetirizine 10 mg oral tablet 1 tab(s), Oral, Daily, PRN allergy symptoms , # 90 tab(s), 3 total refill(s ), [facility], Pharmacy : [facility] Oral (given by mouth) Ordered 5 2024 90.0 0055C-3 [facility] cetirizine 10 mg oral tablet 1 tab(s), Oral, Daily, PRN allergy symptoms , # 90 tab(s), 3 total refill(s ), [facility], Pharmacy : [facility] Oral (given by mouth) Discont inued 01/23/2025 4 2024 90.0 0055C-3 [facility] cyclobenzap rine 10 mg oral tablet 1 tab(s), Oral, every day at bedtime, # 30 tab(s), 0 total refill(s ), Acute, Pharmacy : [facility] Oral (given by mouth) Complet ed 05/31/2024 4 2023 30.0 0055C-3 [facility] cyclobenzap rine 10 mg oral tablet 30 EA, 0 Refill(s ), 0 total refill(s ), Soft Stop Discont inued 01/23/20252024 0055C-3 [facility] cyclobenzap rine 10 mg oral tablet 1 tab(s), Oral, TID, , 0 Refill(s ), # 90 tab(s), 0 total refill(s ), Acute, Pharmacy : [facility] Oral (given by mouth) Ordered 01/23/2026 5 2024 90.0 0055C-3 [facility] cyclobenzap rine 10 mg oral tablet 1 tab(s), Oral, TID, PRN spasm, # 30 tab(s), 0 total refill(s ), Acute, Pharmacy : [facility] Oral (given by mouth) Complet ed 02/28/2024 4 2023 30.0 0055C-3 [facility] FLUoxetine 10 mg oral capsule 1 cap(s), Oral, Daily, # 45 cap(s), 0 total refill(s ), [facility], Pharmacy : [facility] Oral (given by mouth) Discont inued 01/28/2024 4 2023 45.0 0055C-3 [facility] [place] FLUoxetine 10 mg oral capsule 1 cap(s), Oral, Daily, # 90 cap(s), 3 total refill(s ), [facility], Pharm[facility] : [facility] Oral (given by mouth) Discont inued 05/01/2024 4 2023 90.0 0055C[facility]3 [facility] FLUoxetine 10 mg oral capsule 1 cap(s), Oral, Daily, # 90 cap(s), 3 total refill(s ), [facility], Pharmacy : [facility] Oral (given by mouth) Discont inued 01/23/2025 4 2024 90.0 0055C-3 [facility] FLUoxetine 10 mg oral capsule 1 cap(s), Oral, Daily, # 90 cap(s), 0 total refill(s ), [facility], Pharmacy : [facility] Oral (given by mouth) Discont inued 03/18/2024 4 2023 90.0 0055C-3 [facility] [place] FLUoxetine 20 mg oral capsule 1 cap(s), Oral, Daily, # 90 cap(s), 3 total refill(s ), [facility], Pharmacy : [facility] Oral (given by mouth) Discont inued 12/14/20232023 90.0 0055C-3 [facility] [place] FLUoxetine 20 mg oral capsule 1 cap(s), Oral, Daily, # 90 cap(s), 3 total refill(s ), [facility], Pharmacy : [facility] Oral (given by mouth) Discont inued 05/01/2024 4 2023 90.0 0055C-3 [facility] [place] FLUoxetine 20 mg oral capsule 1 cap(s), Oral, Daily, # 90 cap(s), 3 total refill(s ), Maintena pre, Pharmacy : [facility] Oral (given by mouth) Discont inued 01/23/2025 2024 90.0 0055C-[address] [place] [address] FLUoxetine 20 mg oral capsule 1 cap(s), Oral, Daily, # 90 cap(s), 3 total refill(s ), [facility], Pharmacy : [facility] Oral (given by mouth) Ordered 5 2024 90.0 0055C-[address] [place] [address] gabapentin 300 mg/24 hours oral tablet, extended release 3 tab(s), Oral, Daily, with evening meal, # 90 tab(s), 0 total refill(s ), [facility], Pharmacy : [facility] Oral (given by mouth) Discont inued 01/23/20252024 90.0 0055C-[address] [place] [address] gabapentin 600 mg oral tablet TAKE ONE TABLET BY MOUTH EVERY DAY, # 90 EA, 2 total refill(s ), Acute Complet ed 04/27/2023 3 2022 90.0 Ambulat ory Pharmac y gabapentin 600 mg oral tablet 90 tab(s), 0 Refill(s ), 0 total refill(s ), Soft Stop Discont inued 01/28/20242023 0055C-3 75[facility] gabapentin 600 mg oral tablet 1 tab(s), Oral, TID, # 270 tab(s), 0 total refill(s ), [facility], Pharmacy : [facility] Oral (given by mouth) Discont inued 01/28/20242023 270.0 0055C-[address] [place] [address] HYDROcodone -acetaminop hen 5mg-325mg oral tablet 10 EA, 0 Refill(s ), TAKE 1 TABLET BY MOUTH EVERY 6 HOURS NEEDED FOR ACUTE PAIN, 0 total refill(s ), Soft Stop Discont inued 05/01/20242023 0055C-[address] [place] [address] HYDROcodone -acetaminop hen 5mg-325mg oral tablet 1 tab(s), Oral, every 6 hr, 10 EA, 0 Refill(s ), TAKE 1 TABLET BY MOUTH EVERY 6 HOURS NEEDED FOR ACUTE PAIN, # 12 tab(s), 0 total refill(s ), Acute, 05/31/24 12:00:00 AM CDT, Pharmacy : [facility] Oral (given by mouth) Complet ed 05/31/2024 4 2023 12.0 0055C-3 75[facility] [place] HYDROcodone -acetaminop hen 5mg-325mg oral tablet 10 EA, 0 Refill(s ), TAKE 1 TABLET BY MOUTH EVERY 6 HOURS NEEDED FOR ACUTE PAIN, 0 total refill(s ), Soft Stop Discont inued 01/23/20252024 0055C-3 75[facility] HYDROcodone -acetaminop hen 5mg-325mg oral tablet 1 tab(s), Oral, every 6 hr, PRN breakthr ough pain, 10 EA, 0 Refill(s ), TAKE 1 TABLET BY MOUTH EVERY 6 HOURS NEEDED FOR ACUTE PAIN, # 10 tab(s), 0 total refill(s ), Acute, 01/23/26 12:00:00 AM CDT, Pharmacy : [facility] Oral (given by mouth) Ordered 01/23/2026 5 2024 10.0 0055C-[address] [place] [address] [place] loratadine 10 mg tablet See Instruct ions, # 90 EA, 3 total refill(s ), Acute Complet ed 03/17/2024 3 2023 90.0 Ambulat ory Pharmac y naloxone 4 mg/0.1 mL nasal spray See Instruct ions, [place] one dose in one nostril, may repeat every 2 to 3 minutes in alternat ing nostrils until patient responds or medical assistan ce becomes availabl e, # 2 EA, 1 total refill(s ), [facility], Pharmacy : [facility] Ordered 4 2023 2.0 0055C-3 75[facility] [place] oxyCODONE 10 mg oral tablet 1 tab(s), Oral, every 6 hr, PRN pain, # 16 tab(s), 0 total refill(s ), Acute, 05/28/24 12:00:00 AM CDT, Pharmacy : [facility] #[id number] Oral (given by mouth) Complet ed 05/28/20242023 16.0 0055C-3 75[facility] [place] phenazopyri dine 100 mg oral tablet 1 tab(s), Oral, TID(PC), with food, X 2 days, # 6 tab(s), 0 total refill(s ), [facility], Pharmacy : [facility] Oral (given by mouth) Complet ed 05/03/2024 4 2023 6.0 0055C-3 75[facility] [place] PROzac 20 mg oral capsule 1 cap(s), Oral, Daily, # 90 cap(s), 3 total refill(s ), [facility], Pharmacy : [facility] Oral (given by mouth) Discont inued 03/18/20242023 90.0 0055C-3 75[facility] [place] PROzac 20 mg oral capsule 1 cap(s), Oral, Daily, # 90 cap(s), 3 total refill(s ), [facility], Pharmacy : [facility] Oral (given by mouth) Discont inued 12/14/2023 4 2023 90.0 0055C-3 [facility] [place] tamsulosin 0.4 mg oral capsule 1 cap(s), Oral, Daily, 0.4 mg once daily until stone passage or for up to 4 weeks, # 30 cap(s), 0 total refill(s ), [facility], Pharmacy : [facility] #[id number] Oral (given by mouth) Discont inued 05/22/20242023 30.0 0055C-[address] [place] [address] [place] Allergies, Adverse Reactions, Alerts Combined list of allergies from Department of Defense and Veterans Affairs facilities. It does not include entries that were removed or entered in error. Substance Category Reaction Severity Reaction type Status Date Reported Comments Source amoxicilli n-clavulan ate Propensity to adverse reactions to drug Vomiting Active 0 Unknown Organization sulfametho xazole-tri methoprim Propensity to adverse reactions to drug Rash Active 7 Unknown Organization Immunizations Combined list of available immunizations from the Department of Defense and Veterans Affairs facilities. Immunization Series Date Given Administered By Site Reaction Lot Number CVX Code Drug Golf Sales Associate Status Comments Source influenza, injectable, quadrivalent- pf 2018 TRANSCR IBED 150 Seqirus complet ed influenza , injectabl e, quadrival ent-pf 09/26/19 Given Ambulat ory Pharmac y influenza, injectable, quadrivalent- pf 2017 zzLef t Arm [id number] 150 GlaxoSmithKli ne complet ed influenza , injectabl e, quadrival ent-pf 09/09/18 Given Ambulat ory Pharmac y influenza, injectable, quadrivalent- pf 2014 zzRig ht Arm [id number] 150 GlaxoSmithKli ne complet ed influenza , injectabl e, quadrival ent-pf 08/25/15 Given Ambulat ory Pharmac y hepatitis B adult vaccine 2008 zzLef t Arm [id number] 43 GlaxoSmithKli ne complet ed hepatitis B adult vaccine 08/18/09 Given Ambulat ory Pharmac y hepatitis B adult vaccine 2008 zzLef t Arm [id number] 43 GlaxoSmithKli ne complet ed hepatitis B adult vaccine 02/23/09 Given Ambulat ory Pharmac y hepatitis B adult vaccine 2008 zzRig ht Arm [id number] 43 GlaxoSmithKli ne complet ed hepatitis B adult vaccine 12/16/08 Given Ambulat ory Pharmac y tuberculin purified protein derivative 2008 zzLef t Arm [id number] 96 sanofi pasteur complet ed Patient Tolerance : Negative Ambulat ory Pharmac y tetanus, diphtheria, acellular pertu is 2008 zzLef t Arm [id number] 115 sanofi pasteur complet ed tetanus, diphtheri a, acellular pertussis 12/16/08 Given Ambulat ory Pharmac y influenza virus vaccine, live 2006 [id number] 111 [employer] comple t ed influenza virus vaccine, live 09/17/07 Given Ambulat ory Pharmac y influenza virus vaccine, whole virus 1998 [id number] 16 [facility] complet ed influenza virus vaccine, whole virus 08/26/99 Given Ambulat ory Pharmac y pneumococcal polysaccharid e, 23 valent 1998 [id number] [facility] complet ed pneumococ mary ann polysacch aride, 23 valent 08/26/99 Given Ambulat ory Pharmac y Results Combined list of recent chemistry, hematology and other laboratory results from Department of Defense and Veterans Affairs, ranging from 15 months to all on record, depending upon the facility. Order Name Results Value Reference Range Date Interpretation Specimen Comments Source Urinalysis UA Protein Negative mg/dL 05/26 N 0055A-3 [facility] [place] Urinalysis UA Urobilinoge n 1.0 E.U./dL 0.2 - 1.0.. 05/26 N 5A-3 [facility] [place] Urinalysis UA Spec [place] 1.015 1.001 - 1.035 05/26 N -3 [facility] [place] Urinalysis UA RBC 0-2 /HPF 05/26 N -3 [facility] [place] Urinalysis UA WBC 0-2 /HPF 05/26 N -3 [facility] [place] Urinalysis UA pH 6.5 *NA* (05/26/24 12:39 PM) 5 - 8 05/26 0055A-3 [facility] [place] Urinalysis UA Leuk Esterase Negative (05/26/24 12:39 PM) 05/26 N 5A-3 [facility] [place] Urinalysis UA Clarity Clear *NA* (05/26/24 12:39 PM) 05/26-3 [facility] Urinalysis UA Blood Trace-int act 05/26-3 [facility] Urinalysis UA Nitrite Negative (05/26/24 12:39 PM) 05/26 N 0055A-3 [facility] [place] Urinalysis UA Ketones Negative mg/dL 05/26 N 0055A-3 [facility] [place] Urinalysis UA Bili Negative (05/26/24 12:39 PM) 05/26 N 5A-3 [facility] Urinalysis UA Glucose Negative mg/dL 05/26 N 0055A-3 [facility] [place] Urinalysis UA Bacteria 1+ (05/26/24 12:39 PM) 05/26 N 0055A-3 [facility] [place] Urinalysis UA Epi Squam 3-4 (05/26/24 12:39 PM) 05/26 N 0055A-3 [facility] [place] Urinalysis UA Amorph Crystal 1+ /HPF 05/26 N 0055A-3 [facility] Urinalysis UA Color Yellow *NA* (05/26/24 12:39 PM) 05/26 0055A[facility]3 [facility] Vital Signs Combined list of inpatient and outpatient Vital Signs from Department of Defense and Veterans Affairs, ranging from 12 months to all on record, depending upon the facility. Vital Sign Value Date Comments Source Respiratory Rate 16 br/min 01/23/2025 13:14:00 [facility] Systolic Blood Pressure 119 mm[Hg] 01/23/2025 13:14:00 [facility] Diastolic Blood Pressure 81 mm[Hg] 01/23/2025 13:14:00 [facility] Temperature Oral 36.6 Kaylen 01/23/2025 13:14:00 [facility] Mean Arterial Pressure, Calc 94 mm[Hg] 01/23/2025 13:14:00 [facility] Peripheral Pulse Rate 66 bpm 01/23/2025 13:14:00 [facility] Peripheral Pulse Rate 89 bpm 05/01/2024 13:57:00 [facility] BP Site Right arm 05/01/2024 13:57:00 0055C -[facility] Temperature Oral 36.6 Kaylen 05/01/2024 13:57:00 [facility] Mean Arterial Pressure, Calc 76 mm[Hg] 05/01/2024 13:57:00 [facility] Blood Pressure Manual Automatic 05/01/2024 13:57:00 [facility] Respiratory Rate 16 br/min 05/01/2024 13:57:00 [facility] Systolic Blood Pressure 102 mm[Hg] 05/01/2024 13:57:00 [facility] Diastolic Blood Pressure 63 mm[Hg] 05/01/2024 13:57:00 [facility] Encounters Combined list of: 1) Encounters from Department of Veterans Affairs facilities going backup to the last 18 months, not all VA inpatient encounters are included; 2) Encounters from the Department of Defense facilities going backup to 280 months. Location Location Details Encounter Type Encounter Number Reason For Visit Attending Provider ADM Date DC Date Status Disposition Source - [facility] [id number] TEETEE GAMEZ 05/26 Discharge Disposition: Home or Self Care 5A-3 [facility] 5C-[facility] Between Visit [id number] 05/28 Discharge Disposition: Home or Self Care 5C-3 [facility]C-[facility] Between Visit [id number] 05/30 Discharge Disposition: Home or Self Care 5C-3 [facility] Between Visit [id number] 12/31 Discharge Disposition: Home or Self Care 5C-3 [facility]C- [facility] [id number] Localiz ed swellin g, mass and lump, left lower limb,Mi graine with aura, not intract able, without status migrain osus,An xiety disorde r, unspeci fied,Pa in in unspeci fied elbow,L ocalize d swellin g, mass and lump, right lower limb,Ot her disorde rs of lung SUSAN ROSEHALL 01/23 Discharge Disposition: Home or Self Care -3 [facility] Procedures Combined list of: 1) Procedures from Department of Veterans Affairs facilities going back up to thelast 18 months, not all [place] non-surgical procedures are included; 2) All procedures from the Department of [facility] facilities. Procedure Procedure Type Code Date Perfomer Comments Sourc e No data available for this section Ambulatory P harmacy Social History Combined list of available smoking, tobacco, and other social history from Department of Defense and Veterans Affairs facilities. Social History Type Response Date Comment Sourc e Sex Representation Female (finding) 12/28/2022 Unknown Organization Tobacco Cigarette use: Never-cigarette user. Other Tobacco use: Never-other tobacco user (not cigarettes). Ambulatory Pharmacy Sexual Orientation Ambula tory Pharmacy Gender identity Ambulator y Pharmacy Assessment and Plan Combined list of future care activities from Department of Defense and Veterans Affairs facilities (e.g., assessment and plan notes, appointments, orders, and referrals). Additional future care activities may be listed in the Plan of Care section. Result Assessment and Plan Date Source Assessment and Plan Extracted from:Title : 0055 [facility] med refills/elbow pain/ankle lump Author: SUSAN GIRARD NP, Family Medicine Date: 01/23/25 1. N odule of lung Imaging done a t o utside f acility d /t c omplaints of f lank p ain. Left 2mm lung nodule found incidentally. She presents with request for pulmonary referral. She denies SOB, hemoptysis, fevers, abnormal weight loss. No smoking history. - advised that based on size, will repeat imaging in 1 year to assess for stability and changes in characteristics - no referral need at this time - verbalized understanding 2. M igraine with aura Occurring o nce monthly. She will t leon F lexeril at o nset. If NIXON l ingers, she w ill h ave a uras. For her worsening NIXON, she has b een R X'd h ydrocodone that s he takes v jacque s paringly. S he has trialed abortive medications w ithout i mprovement i n sxs. She presents today for refill on current medications prior to transfer d/t insurance change. - will supply small script of her current therapy as she is using very sparingly - naloxone PRN - flexeril r enewed 3. A nxiety disorder Well-controlled on current therapy. Recent increase in dose to 20mg daily d/t increased stressors at home. Denies SI/HI. - no medication changes today; continue current therapy 4. E lbow pain Hit left elbow on edge of counter 1.5 weeks ago. No immediate b ruising or swelling. She reports continued pain. No loss of ROM, strength. P E remarkable for T TP olecranon. -XR to r/o small fx; if negative, consider contusion - no referral a t this time; consider pending results - will call with results and POC 5. M ass of subcutaneous tissue of left foot Subcutaneous lump located t o adjacent to b ilateral l ateral malleoli. D enies?injury. S ize increases with activity, prolonged walking. It is d escribed as aching, throbbing. No i mprovement w ith elevation of extremity or compression. Tenderness to palpation. Moderate swelling to area adjacent to lateral malleolus that is TTP. Full ankle dorsiflexion, plantar flexion. Neurovascular intact, normal pulses. Consider bursitis. - US to identify/classify subcutaneous lump - no referral at this time, however consider pending results - no additional imaging - f/u after results 6. M ass of subcutaneous tissue of right foot As above. 30 minutes total time spent on evaluation and management. Susan Girard R., Ye, [place] [place] [address] Extracted from:Title: 0055 [facility] Virtual possible UTI Author: TEETEE PUGH PA Date: 05/26/24 1. U rination painful 3 y/o F emale h ere for virtual appointment. Verified name and . Discussed the following: Pt states that she started having painful urination since early May after stopping Abx for kidney stone. Pt was given Macrobid 100mg BID for 10d and relieved symptoms at that time. Pt states it feels like b urning g lass with urination. Pt has increased frequency/urgency. Pt states she has had this issue before. Pt denies fever/chills, back pain, blood in urine. She states her pain has improved a lot and is taking the alflusozin without issue for kidney stone. - Ordered UA w/ culture - Will consider Cipro vs Macrobid depending on culture (pt states bactrim gave her bad C-diff infection last time she was on medication) - Pt to continue with OTC pain management for the next 2-3d -f/u as needed or if symptoms worsen -ER f/u if new fever/chills, flank pain, N/V Ordered: Urinalysis with Microscopic and Culture if Indicated Extracted from:Title: 0055 [facility] ER f/u kidney stone/abd pain Author: TEETEE PUGH PA Date: 05/01/24 1. K idney stone 63 y/o F p resents to clinic for f/u from for 3 mm kidney stone and UTI. Pt has R low abd pain about 8-9/10. She was given [place], Macrobid, and Ondansetron for pain and UTI symptoms. Pt has hx of mesh placement in low abd and states CT picked up abd imaging (Slight prominence of scattered small bowel loops are also seen which are nonspecific). UC recommend f/u with Gen surgery for further work-up/management. Pt in acute pain but no respiratory distress, vitals were within range. -Order referral for gen surgery -Rx Cyclobenzaprine for back pain -Rx Hydrocodone-acetaminophen for acute pain to bridge to Gen Surgery (w/ Naloxaone) -Patient to follow-up if increasing pain -ER precautions if new onset of fever, ir-retractable pain, bloody stool, nausea/vomiting, lightheadedness Teetee Pugh, [address]Lt, [place] [address] Ordered: cyclobenzaprine(cyclobenzaprine 10 mg oral tablet), 1 tab(s), Oral, every day at bedtime, # 30 tab(s), 0 total refill(s), Acute, 1 tab(s) Oral every day at bedtime, Pharmacy: [facility] [Last filled 05/01/24] HYDROcodone-acetaminophen(HYDROcod one-acetaminophen 5mg-325mg oral tablet), 1 tab(s), Oral, every 6 hr, 10 EA, 0 Refill(s), TAKE 1 TABLET BY MOUTH EVERY 6 HOURS NEEDED FOR ACUTE PAIN, # 12 tab(s), 0 total refill(s), Acute, 05/31/2024, 1 tab(s) Oral every 6 hr,Instr:10 EA, 0 Refill(s), TAKE 1 TABLET BY MOUTH EVERY 6 HOURS A... nalOXone(naloxone 4 mg/0.1 mL nasal spray), See Instructions, [place] one dose in one nostril, may repeat every 2 to 3 minutes in alternating nostrils until patient responds or medical assistance becomes available, # 2 EA, 1 total refill(s), Maintenance, [place] one dose in one nostril, may repeat... [ Referral Request 2.0 - [facility] 2. U TI - Urinary tract infection see above. Patient states she feels like she is peeing out glass. She just started taking 10d Macrobid for UTI. - Rx Phenazopyridine for 2d for acute pain - Follow-up in 10-12d if still symptomatic or sooner if worsening symptoms - Can repeat UA if indicated Ordered: phenazopyridine(phenazopyridine 100 mg oral tablet), 1 tab(s), Oral, TID(PC), with food, X 2 days, # 6 tab(s), 0 total refill(s), Acute, 1 tab(s) Oral TID(PC),x2 days,Instr:with food, Pharmacy: [facility] [Last filled 05/01/24] 3. A nxiety disorder Patient needs a refill on antianxiety medication. For some reason the pharmacy was not allowing her to apple picker medications so refill was placed. Had previous discussion earlier about her anxiety medication. Recommended patient follow up to discuss anxiety further if needed. Orders: FLUoxetine(FLUoxetine 10 mg oral capsule), 1 cap(s), Oral, Daily, # 90 cap(s), 3 total refill(s), Maintenance, 1 cap(s) Oral Daily, Pharmacy: [facility] [Federal Rx: #90 last filled 05/01/24] FLUoxetine(FLUoxetine 20 mg oral capsule), 1 cap(s), Oral, Daily, # 90 cap(s), 3 total refill(s), Maintenance, 1 cap(s) Oral Daily, Pharmacy: [facility] [Not filled] Extracted from:Title: 0055 [facility] Virtual Med refill Author: TEETEE PUGH PA Date: 01/28/24 1. A nxiety disorder [age] y/o f emale h ere for virtual appointment. Verified name and . Discussed the following: Pt has been handling with husbands illness and has increased stress of working with him. Pt reports good support at home. Seeking therapy. Pt denies recent SI/HI. VIRGILIO-7: 8 PHQ-9: 3 PLAN: - Rx: fluoxetine (Prozac) 3 0mg. Discussed ADRs: lethargy, decreased libido, GI upset, etc. Cautioned regarding withdrawal symptoms if medication is stopped abruptly without taper. -discussed [email or web address] for therapy - Advised patient to go to ER immediately for SI/HI/morbid ideation. - F/u as needed Ordered: FLUoxetine(FLUoxetine 10 mg oral capsule), 1 cap(s), Oral, Daily, # 90 cap(s), 0 total refill(s), Maintenance, 1 cap(s) Oral Daily, Pharmacy: [facility] [Not filled] 2. A llergic rhinitis Chronic condition. Well controlled. No other concerns. -Will continue current medication regimen -f/u as needed Ordered: cetirizine(cetirizine 10 mg oral tablet), 1 tab(s), Oral, Daily, PRN allergy symptoms, # 90 tab(s), 3 total refill(s), Maintenance, 1 tab(s) Oral Daily,PRN:allergy symptoms, Pharmacy: [facility] [Not filled] 3. C ervical strain Patient has history of cervical strain. She has tried other management in the past. No change in current symptoms. She will take a 10 mg Flexeril as needed for muscle strain if she starts getting headache along with it. -Refill cyclobenzaprine 10 mg tab, can take up to 3 times a day as needed Ordered: cyclobenzaprine(cyclobenzaprine 10 mg oral tablet), 1 tab(s), Oral, TID, PRN spasm, # 30 tab(s), 0 total refill(s), Acute, 1 tab(s) Oral TID,PRN:spasm, Pharmacy: [facility] [Not filled] 4. N erve root pain Patient had hernia surgery several years back and has c hronic nerve p ain in the area.? Patient takes gabapentin as needed for pain. -refill Gabapentin Orders: gabapentin(gabapentin 300 mg/24 hours oral tablet, extended release), 3 tab(s), Oral, Daily, with evening meal, # 90 tab(s), 0 total refill(s), Maintenance, 3 tab(s) Oral Daily,Instr:with evening meal, Pharmacy: [facility] [Not filled] Extracted from:Title: 0055 [facility] Anxiety Author: TEETEE PUGH PA Date: 12/14/23 1. A nxiety disorder 63 y/o m juan diego here for virtual appointment. Verified name and . Discussed the following: Pt has been having increased anxiety due to husbands recent health concerns. She has increased her dose of Prozac in the past that has helped her in times of stress. No concerns with medication. No current SI/HI. - Rx: 1 0mg Fluoxetine to add to 20mg Fluoxetine. Discussed ADRs: lethargy, decreased libido, GI upset, etc. Cautioned regarding withdrawal symptoms if medication is stopped abruptly without taper. - Advised patient to go to ER immediately for SI/HI/morbid ideation. - F/u in clinic 6-8 weeks to assess - All questions answered. Patient verbalized understanding and agreed with plan. Ordered: FLUoxetine(FLUoxetine 10 mg oral capsule), 1 cap(s), Oral, Daily, # 45 cap(s), 0 total refill(s), Maintenance, 1 cap(s) Oral Daily, Pharmacy: [facility] [Not filled] Orders: FLUoxetine(PROzac 20 mg oral capsule), 1 cap(s), Oral, Daily, # 90 cap(s), 3 total refill(s), Maintenance, 1 cap(s) Oral Daily, Pharmacy: [facility] [Not filled] Future Scheduled TestsLaboratoryUrinalysis with Microscopic and Culture if Indicated 12/31/24RadiologyXR Elbow Complete 3+ Views Left 01/23/25 02/17/2025 [id number] Assessment and Plan Extracted from:Title : 0055 [facility] med refills/elbow pain/ankle lump Author: SUSAN GIRARD NP, Family Medicine Date: 01/23/25 1. N odule of lung Imaging done a t o utside f acility d /t c omplaints of f lank p ain. Left 2mm lung nodule found incidentally. She presents with request for pulmonary referral. She denies SOB, hemoptysis, fevers, abnormal weight loss. No smoking history. - advised that based on size, will repeat imaging in 1 year to assess for stability and changes in characteristics - no referral need at this time - verbalized understanding 2. M igraine with aura Occurring o nce monthly. She will t leon F lexeril at o nset. If NIXON l ingers, she w ill h ave a uras. For her worsening NIXON, she has b een R X'd h ydrocodone that s he takes v jacque s paringly. S he has trialed abortive medications w ithout i mprovement i n sxs. She presents today for refill on current medications prior to transfer d/t insurance change. - will supply small script of her current therapy as she is using very sparingly - naloxone PRN - flexeril r enewed 3. A nxiety disorder Well-controlled on current therapy. Recent increase in dose to 20mg daily d/t increased stressors at home. Denies SI/HI. - no medication changes today; continue current therapy 4. E lbow pain Hit left elbow on edge of counter 1.5 weeks ago. No immediate b ruising or swelling. She reports continued pain. No loss of ROM, strength. P E remarkable for T TP olecranon. -XR to r/o small fx; if negative, consider contusion - no referral a t this time; consider pending results - will call with results and POC 5. M ass of subcutaneous tissue of left foot Subcutaneous lump located t o adjacent to b ilateral l ateral malleoli. D enies?injury. S ize increases with activity, prolonged walking. It is d escribed as aching, throbbing. No i mprovement w ith elevation of extremity or compression. Tenderness to palpation. Moderate swelling to area adjacent to lateral malleolus that is TTP. Full ankle dorsiflexion, plantar flexion. Neurovascular intact, normal pulses. Consider bursitis. - US to identify/classify subcutaneous lump - no referral at this time, however consider pending results - no additional imaging - f/u after results 6. M ass of subcutaneous tissue of right foot As above. 30 minutes total time spent on evaluation and management. Susan Girard R., Ye, INSPECTING MACHINE ADJUSTER-C [facility] [place] [address] Extracted from:Title: 0055 [facility] Virtual possible UTI Author: TEETEE PUGH PA Date: 05/26/24 1. U rination painful 3 y/o F emale h ere for virtual appointment. Verified name and . Discussed the following: Pt states that she started having painful urination since early May after stopping Abx for kidney stone. Pt was given Macrobid 100mg BID for 10d and relieved symptoms at that time. Pt states it feels like b urning g lass with urination. Pt has increased frequency/urgency. Pt states she has had this issue before. Pt denies fever/chills, back pain, blood in urine. She states her pain has improved a lot and is taking the alflusozin without issue for kidney stone. - Ordered UA w/ culture - Will consider Cipro vs Macrobid depending on culture (pt states bactrim gave her bad C-diff infection last time she was on medication) - Pt to continue with OTC pain management for the next 2-3d -f/u as needed or if symptoms worsen -ER f/u if new fever/chills, flank pain, N/V Ordered: Urinalysis with Microscopic and Culture if Indicated Extracted from:Title: 0055 [facility] ER f/u kidney stone/abd pain Author: TEETEE PUGH PA Date: 05/01/24 1. K miladis stone 63 y/o F p resents to clinic for f/u from for 3 mm kidney stone and UTI. Pt has R low abd pain about 8-9/10. She was given [place], Macrobid, and Ondansetron for pain and UTI symptoms. Pt has hx of mesh placement in low abd and states CT picked up abd imaging (Slight prominence of scattered small bowel loops are also seen which are nonspecific). recommend f/u with Gen surgery for further work-up/management. Pt in acute pain but no respiratory distress, vitals were within range. -Order referral for gen surgery -Rx Cyclobenzaprine for back pain -Rx Hydrocodone-acetaminophen for acute pain to bridge to Gen Surgery (w/ Naloxaone) -Patient to follow-up if increasing pain -ER precautions if new onset of fever, ir-retractable pain, bloody stool, nausea/vomiting, lightheadedness Teetee Pugh, 1Lt, P A-[facility] [place] [address] Ordered: cyclobenzaprine(cyclobenzaprine 10 mg oral tablet), 1 tab(s), Oral, every day at bedtime, # 30 tab(s), 0 total refill(s), Acute, 1 tab(s) Oral every day at bedtime, Pharmacy: [facility] [Last filled 05/01/24] HYDROcodone-acetaminophen(HYDROcod one-acetaminophen 5mg-325mg oral tablet), 1 tab(s), Oral, every 6 hr, 10 EA, 0 Refill(s), TAKE 1 TABLET BY MOUTH EVERY 6 HOURS NEEDED FOR ACUTE PAIN, # 12 tab(s), 0 total refill(s), Acute, 05/31/2024, 1 tab(s) Oral every 6 hr,Instr:10 EA, 0 Refill(s), TAKE 1 TABLET BY MOUTH EVERY 6 HOURS A... nalOXone(naloxone 4 mg/0.1 mL nasal spray), See Instructions, [place] one dose in one nostril, may repeat every 2 to 3 minutes in alternating nostrils until patient responds or medical assistance becomes available, # 2 EA, 1 total refill(s), Maintenance, [place] one dose in one nostril, may repeat... [ Referral Request 2.0 - [facility]D 2. U TI - Urinary tract infection see above. Patient states she feels like she is peeing out glass. She just started taking 10d Macrobid for UTI. - Rx Phenazopyridine for 2d for acute pain - Follow-up in 10-12d if still symptomatic or sooner if worsening symptoms - Can repeat UA if indicated Ordered: phenazopyridine(phenazopyridine 100 mg oral tablet), 1 tab(s), Oral, TID(PC), with food, X 2 days, # 6 tab(s), 0 total refill(s), Acute, 1 tab(s) Oral TID(PC),x2 days,Instr:with food, Pharmacy: [facility] [Last filled 05/01/24] 3. A nxiety disorder Patient needs a refill on antianxiety medication. For some reason the pharmacy was not allowing her to apple picker medications so refill was placed. Had previous discussion earlier about her anxiety medication. Recommended patient follow up to discuss anxiety further if needed. Orders: FLUoxetine(FLUoxetine 10 mg oral capsule), 1 cap(s), Oral, Daily, # 90 cap(s), 3 total refill(s), Maintenance, 1 cap(s) Oral Daily, Pharmacy: [facility] [Federal Rx: #90 last filled 05/01/24] FLUoxetine(FLUoxetine 20 mg oral capsule), 1 cap(s), Oral, Daily, # 90 cap(s), 3 total refill(s), Maintenance, 1 cap(s) Oral Daily, Pharmacy: [facility] [Not filled] Extracted from:Title: 0055 [facility] Virtual Med refill Author: TEETEE PUGH PA Date: 01/28/24 1. A nxiety disorder [age] y/o f emale h ere for virtual appointment. Verified name and . Discussed the following: Pt has been handling with husbands illness and has increased stress of working with him. Pt reports good support at home. Seeking therapy. Pt denies recent SI/HI. VIRGILIO-7: 8 PHQ-9: 3 PLAN: - Rx: fluoxetine (Prozac) 3 0mg. Discussed ADRs: lethargy, decreased libido, GI upset, etc. Cautioned regarding withdrawal symptoms if medication is stopped abruptly without taper. -discussed [email or web address] for therapy - Advised patient to go to ER immediately for SI/HI/morbid ideation. - F/u as needed Ordered: FLUoxetine(FLUoxetine 10 mg oral capsule), 1 cap(s), Oral, Daily, # 90 cap(s), 0 total refill(s), Maintenance, 1 cap(s) Oral Daily, Pharmacy: [facility] [Not filled] 2. A llergic rhinitis Chronic condition. Well controlled. No other concerns. -Will continue current medication regimen -f/u as needed Ordered: cetirizine(cetirizine 10 mg oral tablet), 1 tab(s), Oral, Daily, PRN allergy symptoms, # 90 tab(s), 3 total refill(s), Maintenance, 1 tab(s) Oral Daily,PRN:allergy symptoms, Pharmacy: [facility] [Not filled] 3. C ervical strain Patient has history of cervical strain. She has tried other management in the past. No change in current symptoms. She will take a 10 mg Flexeril as needed for muscle strain if she starts getting headache along with it. -Refill cyclobenzaprine 10 mg tab, can take up to 3 times a day as needed Ordered: cyclobenzaprine(cyclobenzaprine 10 mg oral tablet), 1 tab(s), Oral, TID, PRN spasm, # 30 tab(s), 0 total refill(s), Acute, 1 tab(s) Oral TID,PRN:spasm, Pharmacy: [facility] [Not filled] 4. N erve root pain Patient had hernia surgery several years back and has c hronic nerve p ain in the area.? Patient takes gabapentin as needed for pain. -refill Gabapentin Orders: gabapentin(gabapentin 300 mg/24 hours oral tablet, extended release), 3 tab(s), Oral, Daily, with evening meal, # 90 tab(s), 0 total refill(s), Maintenance, 3 tab(s) Oral Daily,Instr:with evening meal, Pharmacy: [facility] [Not filled] Extracted from:Title: 0055 [facility] Anxiety Author: TEETEE PUGH PA Date: 12/14/23 1. A nxiety disorder 63 y/o m juan diego here for virtual appointment. Verified name and . Discussed the following: Pt has been having increased anxiety due to husbands recent health concerns. She has increased her dose of Prozac in the past that has helped her in times of stress. No concerns with medication. No current SI/HI. - Rx: 1 0mg Fluoxetine to add to 20mg Fluoxetine. Discussed ADRs: lethargy, decreased libido, GI upset, etc. Cautioned regarding withdrawal symptoms if medication is stopped abruptly without taper. - Advised patient to go to ER immediately for SI/HI/morbid ideation. - F/u in clinic 6-8 weeks to assess - All questions answered. Patient verbalized understanding and agreed with plan. Ordered: FLUoxetine(FLUoxetine 10 mg oral capsule), 1 cap(s), Oral, Daily, # 45 cap(s), 0 total refill(s), Maintenance, 1 cap(s) Oral Daily, Pharmacy: [facility] [Not filled] Orders: FLUoxetine(PROzac 20 mg oral capsule), 1 cap(s), Oral, Daily, # 90 cap(s), 3 total refill(s), Maintenance, 1 cap(s) Oral Daily, Pharmacy: [facility] [Not filled] Future Scheduled TestsLaboratoryUrinalysis with Microscopic and Culture if Indicated 12/31/24RadiologyXR Elbow Complete 3+ Views Left 01/23/25 02/17/2025 Unknown Organization Functional Status Combined list of recent functional and cognitive assessments recorded at [facility] [employer] [facility] (VA).VA Functional [place] Measurement (FIM) Scale: 1 = Total Assistance (Subject = 0% +), 2 = Maximal Assistance (Subject = 25% +), 3 = Moderate Assistance (Subject = 50% +), 4 = Minimal Assistance (Subject = 75% +), 5 = Supervision, 6 = Modified [place] (Device), 7 = Complete [place] (Timely, Safely). Assessment Date/Time Source Assessment Type Assessment Skill Assessment Score Assessment Details No data available for this section
--- OUTSIDE RECORDS SUMMARY | 2025-02-17 08:34 | XMS_ITS | Clinical Summary ---
Author Organization [facility] Address [address] [place] [address] Care Team Providers Care Blank Driller Name Role Phone Unavailable Primary Care Provider Unavailabl e Source Comments [facility],non-owned Affiliates and Associated Physician Practices is amultiple site organization consisting of ambulatory clinics and hospital sitesin [place], [place], [place] and [place]. This disclosure is being madepursuant to the Care Everywhere program and may not contain all information available regarding this patient. Last updated 18.[facility] [employer] Allergies Active Allergy Reactions Criticality Noted Date Comments Sulfamethoxazole W-Trimethoprim Rash Medium 03/2017 Medications * Be aware that medications may not be up to date on this document. Alwaysverify current medications with the patient. FLUoxetine HCl (PROZAC PO) Active triamcinolone acetonide (KENALOG) 0.1 % ointmentIndicati ons:Allergic contact dermatitis, unspecified trigger Apply to affected area 3 times daily 15 g 7 Active predniSONE (DELTASONE) 10 MG tabletIndication s:Allergic contact dermatitis, unspecified trigger 5 tab PO QD x3 day,then 4 tab PO QD x3 day,then 3 tab PO QD x3 day,then 2 tab PO QD x3 day,then 1 tab PO QD x3 days,Take with food 45 Tab 7 Active Family History Medical History Relation Name Comments Cancer - Bladder Father Cancer - Breast Father Cancer - Lung Father Diabetes - Type 2 Mother Relation Name Status Comments Father Mother Social History Tobacco Use Types Packs/Day Years Used Date Smoking Tobacco: Never Smokeless Tobacco: Never Comments No Sex and Gender Information Value Date Recorded Sex Assigned at Not on file Legal Sex Female 11:41 AM CDT Gender Identity Not on file Sexual Orientation Not on file Last Filed Vital Signs Vital Sign Reading Time Taken Comments Blood Pressure 124/80 05/09/2017 12:06 PM CDT Pulse 68 05/09/2017 12:06 PM CDT Temperature 36.9 C (98.4 F) 05/09/2017 12:06 PM CDT Respiratory Rate 16 05/09/2017 12:06 PM CDT Oxygen Saturation 98% 05/09/2017 12:06 PM CDT Inhaled Oxygen Concentration - - Weight 102.1 kg (225 lb) 05/09/2017 12:06 PM CDT Height 170.2 cm (5' 7 ) 05/09/2017 12:06 PM CDT Body Mass Index 35.24 05/09/2017 12:06 PM CDT Plan of Treatment Health Maintenance Due Date Last Done Comments COLOGUARD (AGES 45-75) - COL ON CA SCREENING 1960 COLON MONITORING 1960 COLONOSCOPY - COLON CA SCREENING 1960 CT COLONOGRAPHY - COLON CA SCREENING 1960 Colorectal Cancer Screening 1960 FIT - COLON CA SCREENING 1960 FLEX SIG - COLON CA SCREENING 1960 LIPID TESTING 1960 MAMMOGRAM 1960 PAP SMEAR 1960 HIV SCREENING 1975 HEPATITIS C SCREENING 06/19/1978 DTAP/TDAP/TD VACCINES (1 - Tdap) 1979 PNEUMOCOCCAL VACCINE 50+ (1 of 1 - PCV) 2010 ZOSTER VACCINE (1 of 2) 2010 COVID-19 VACCINE ( - 2023-2 5 season) 2024 DEPRESSION SCREENING 11/05/2024 INFLUENZA VACCINE (Season Ended) 2025 Respiratory Syncytial Virus (RSV) Vaccine Pt: or over 60 yrs (1 - 1-dose 75+ series) 2035 HEPATITIS B VACCINE Aged Out No longe r eligible based on patient's age to complete this topic HIB VACCINE Aged Out No longer eligi ble based on patient's age to complete this topic HPV VACCINE Aged Out No longer eligi ble based on patient's age to complete this topic MENINGOCOCCAL (Group B) VACC INE SHARED DECISION-MAKING Aged Out No longer eligibl e based on patient's age to complete this topic MENINGOCOCCAL GROUPS A/C/Y/W VACCINE Aged Out No longer eligible b ased on patient's age to complete this topic PNEUMOCOCCAL VACCINE Aged Out No long er eligible based on patient's age to complete this topic
--- OUTSIDE RECORDS SUMMARY | 2025-02-17 08:35 | XMS_ITS | Clinical Summary ---
Author Organization [facility] Address [address] [place] [address] Care Team Providers Care Drug Enforcement Administration Agent Name Role Phone Teetee Yoon Primary Care Provider [phone] Allergies Active Allergy Reactions Criticality Noted Date Comments Amoxicillin-Pot Clavulanate Vomiting 12/25/19 20 Sulfamethoxazole-Trimethoprim Rash Medium 2021 Medications FLUoxetine 20 MG capsule Take 1 capsule (20 mg total) by mouth daily. Active gabapentin 600 MG tablet Take 1 tablet (600 mg total) by mouth daily. Active dicyclomine 20 MG tablet Take 1 tablet (20 mg total) by mouth every 6 (six) hours. 20 tablet 12/15/19 22 Active ondansetron (ZOFRAN-ODT) 4 MG disintegrating tablet Take 1 tablet (4 mg total) by mouth every 8 (eight) hours as needed for Nausea. 20 tablet 04/29/20 24 Active Sodium Sulfate-Mag Sulfate-KCl (SUTAB) 2267-397-241 MG TabIndications:Quin rrhea, unspecified type,Abdominal pain, unspecified abdominal location,History of peptic ulcer disease Take 12 tablets by mouth see administration instructions. Take 12 tablets at 5:00pm evening before colonoscopy, then take 12 tablets at 4:00am morning of colonscopy. 24 tablet 06/24/20 24 Active probiotic (FLORAJEN3) Cap capsule Take 1 capsule by mouth daily with breakfast. Active omeprazole (PRILOSEC) 40 MG capsule Take 1 capsule (40 mg total) by mouth daily. 90 capsule 1 07/16/20 24 Active sucralfate (CARAFATE) 1 G tabletIndications: Diarrhea, unspecified type,Abdominal pain, unspecified abdominal location Take 1 tablet (1 g total) by mouth 4 (four) times daily before meals and nightly. 120 tablet 1 08/12/20 24 Active naproxen (NAPROSYN) 500 MG tablet Take 1 tablet (500 mg total) by mouth 2 (two) times daily with meals. 60 tablet 01/01/20 25 Active HYDROcodone-acetam inophen (NORCO) 5-325 MG tabletIndications: Acute Pain < 7 Day Supply Take 1 tablet by mouth every 6 (six) hours as needed. Indications: Acute Pain < 7 Day Supply 10 tablet 01/01/20 25 Active Active Problems Problem Noted Date Diagnosed Date Diarrhea, unspecified type 06/24/2024 Abdominal pain, unspecified abdominal location 0 06/24/2024 History of peptic ulcer disease 06/24/2024 Encounters Date Type Department Care Team Description 01/01/2025 8:45 AM COMB MACHINE OPERATOR - 01/01/2025 1:33 PM [facility] Emergency [facility] Emergency Room [id number] [place] [address] Azar Dominguez MD Flank Pain Discharge Disposition: Home or Self Care (Routine Discharge) 01/01/2025 Travel from Last 3 Months Immunizations Immunization Administration Dates Next Due Tdap (Adacel) 12/15/2021 Family History Medical History Relation Comments Cancer Brother Cancer Father Diabetes Mother Relation Status Comments Brother Father Mother Social History Tobacco Use Types Packs/Day Years Used Date Smoking Tobacco: Never Smokeless Tobacco: Never Tobacco Cessation:Counseling Given: Not Answered Alcohol Use Standard Drinks/Week Comments Not Currently 0 (1 standard drink = 0.6 oz pur e alcohol) Comments No Sex and Gender Information Value Date Recorded Sex Assigned at Female 02/09/2025 4:20 PM CDT Legal Sex Female 4:28 PM CDT Gender Identity Not on file Sexual Orientation Not on file Last Filed Vital Signs Vital Sign Reading Time Taken Comments Blood Pressure 131/80 01/01/2025 1:30 PM COMB MACHINE OPERATOR Pulse 68 01/01/2025 1:30 PM COMB MACHINE OPERATOR Temperature 36.2 C (97.2 F) 01/01/2025 1:30 PM COMB MACHINE OPERATOR Respiratory Rate 16 01/01/2025 1:30 PM COMB MACHINE OPERATOR Oxygen Saturation 97% 01/01/2025 1:30 PM COMB MACHINE OPERATOR Inhaled Oxygen Concentration - - Weight 93 kg (205 lb 0.4 oz) 01/01/2025 8:46 AM COMB MACHINE OPERATOR Height 170.2 cm (5' 7 ) 01/01/2025 8:46 AM COMB MACHINE OPERATOR Body Mass Index 32.11 01/01/2025 8:46 AM COMB MACHINE OPERATOR Plan of Treatment Health Maintenance Due Date Last Done Comments Annual Physical 1963 Hepatitis C 1978 Mammogram Screening 2000 Zoster Vaccines (1 of 2) 2010 COVID-19 Vaccine (2023-2 5 season) 2024 09/07/2021, 02/04/2021, 01/14/2021 PHQ-2 (Physician Tichnor) 11/05/2024 DTaP, Tdap and Td Vaccines ( 3 - Td or Tdap) 12/15/2031 12/15/2021, 12/16/2008 Colorectal Cancer Screening Colonoscopy (10 Years) 07/16/2034 07/16/2024 RSV Immunization or 60+ Years (1 - 1-dose 75+ series) 2035 Pneumococcal Vaccine: Pediatrics (0 to 5 Years) and At-Risk Patients (6 to 49 Years) Aged Out 08/26/1999 No longer eligible b ased on patient's age to complete this topic Meningococcal B Vaccine Aged Out No l onger eligible based on patient's age to complete this topic Meningococcal Vaccine Aged Out No tracey shanna eligible based on patient's age to complete this topic RSV Immunizations Under 20 Months Aged Out No longer eligible b ased on patient's age to complete this topic Procedures Procedure Name Priority Date/Time Associated Diagnosis Comments CTA CHEST+ABD+PEL STAT 01/01/2025 12: 27 PM COMB MACHINE OPERATOR CT ABD+PEL WO CON STAT 01/01/2025 10: 08 AM COMB MACHINE OPERATOR LIPASE STAT 01/01/2025 9:11 AM COMB MACHINE OPERATOR COMPREHENSIVE METABOLIC PANEL STAT 01/01/2025 9:11 AM COMB MACHINE OPERATOR PARTIAL THROMBOPLASTIN TIME,PTT STAT 01/01/2025 9:11 AM COMB MACHINE OPERATOR PROTHROMBIN TIME, VENOUS STAT 01/01/2025 9:11 AM COMB MACHINE OPERATOR CBC W/DIFF AUTOMATED STAT 01/01/2025 9:11 AM COMB MACHINE OPERATOR URINALYSIS, AUTO, COMPLETE STAT 01/01/2025 9:00 AM COMB MACHINE OPERATOR from Last 3 Months Results * CTA CHEST+ABD+PEL (01/01/2025 12:27 PM COMB MACHINE OPERATOR) Anatomical Region Laterality Modality Chest, Abdomen, Pelvis Computed Tomography 01/01/2025 12:3 8 PM COMB MACHINE OPERATOR Impressions 01/01/2025 1:09 PM COMB MACHINE OPERATOR =====IMPRESSION:===== No evidence of aortic aneurysm or dissection. No evidence of pulmonary embolism. No abdominal aortic aneurysm seen. 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 2 mm nodule left lung. Follow-up in one years time could be considered. Additional findings as described above. Ordered By: AZAR DOMINGUEZ Interpreted By: Johnny Alcazar MD, 01/01/2025 12:38 PM Narrative 01/01/2025 1:09 PM COMB MACHINE OPERATOR [facility] [address] [place] [address] EXAMINATION: CTA Chest and Abdomen and Pelvis with contrast EXAM DATE/TIME: 01/01/2025 12:03 PM REASON FOR EXAM: r/o dissection COMPARISON: 01/01/2025, 04/29/2024, 12/15/2021 TECHNIQUE: Axial CTA images of the chest and abdomen and pelvis are obtained following uneventful intravenous injection of 75 mL Isovue-370. Subsequent coronal and sagittal reformatted sequences are created for evaluation. In addition MIP imaging of the thoracic arterial vasculature is created for review. A dose lowering technique was used for this procedure, which may include, but is not limited to, dose reduction technique, automated exposure control, the use of iterative reconstruction, and ALARA (As Low As Reasonably Achievable) / Image Gently techniques. FINDINGS: VASCULAR FINDINGS: No evidence of filling defect in the pulmonary arteries is noted to suggest pulmonary embolism. Examination aorta shows no evidence of aneurysm or dissection. This is within the technical limits of present study. Some motion does limit exam somewhat. The ascending aorta measures 3.1 x 3.0 cm. The descending aorta measures 2.9 x 3.0 cm. The abdominal aorta measures 1.9 x 1.9 cm. This is stable in appearance prior study. The celiac artery shows mild ostial narrowing unchanged from prior exam. The superior mesenteric, renal arteries bilaterally shows no evidence of stenosis. 2 left renal arteries are noted. The inferior mesenteric artery is visualized and opacified, unchanged from prior study. Subtle coronary artery calcifications are noted. NONVASCULAR FINDINGS: CT Thorax: Lungs and pleura: Subtle interstitial prominence is suspected peripherally. Mild pulmonary fibrosis is possible. 2 mm nodule in the left lung on image 44 of axial series 9 is seen. This could be calcified although small size limits evaluation. Mediastinum and fely: No enlarged mediastinal or hilar lymph nodes. Vasculature: As described above Axillae:No enlarged axillary lymphadenopathy. Superficial tissues: Unremarkable CT abdomen and pelvis: Phase of enhancement limits examination somewhat. Liver:Cirrhotic morphology of the liver is seen. Hypoechoic dense lesion in the posterior liver is grossly stable prior study is too small to characterize. Gallbladder and Biliary system:Prior cholecystectomy is noted. Pancreas:Unremarkable. Spleen:Mild splenomegaly is present. Kidneys:Unremarkable. Adrenals:Normal. Bowel:Unchanged from recent prior exam. Aorta and Retroperitoneum:No enlarged lymph nodes.Aorta as described above. Pelvic Organs:Not visualized Bone/Musculoskeletal: No aggressive osseous lesions. Free fluid: None Additional Findings: other Procedure Note Johnny Alcazar MD - 01/01/2025 [facility] [address] [place] [address] EXAMINATION: CTA Chest and Abdomen and Pelvis with contrast EXAM DATE/TIME: 01/01/2025 12:03 PM REASON FOR EXAM: r/o dissection COMPARISON: 01/01/2025, 04/29/2024, 12/15/2021 TECHNIQUE: Axial CTA images of the chest and abdomen and pelvis areobtained following uneventful intravenous injection of 75 mL Isovue-370.Subsequent coronal and sagittal reformatted sequences are created forevaluation. In addition MIP imaging of the thoracic arterial vasculatureis created for review. A dose lowering technique was used for thisprocedure, which may include, but is not limited to, dose reductiontechnique, automated exposure control, the use of iterativereconstruction, and ALARA (As Low As Reasonably Achievable) / Image Gentlytechniques. FINDINGS: VASCULAR FINDINGS: No evidence of filling defect in the pulmonary arteries is noted tosuggest pulmonary embolism. Examination aorta shows no evidence ofaneurysm or dissection. This is within the technical limits of presentstudy. Some motion does limit exam somewhat. The ascending aorta measures3.1 x 3.0 cm. The descending aorta measures 2.9 x 3.0 cm. The abdominalaorta measures 1.9 x 1.9 cm. This is stable in appearance prior study. Theceliac artery shows mild ostial narrowing unchanged from prior exam. Thesuperior mesenteric, renal arteries bilaterally shows no evidence ofstenosis. 2 left renal arteries are noted. The inferior mesenteric arteryis visualized and opacified, unchanged from prior study. Subtle coronary artery calcifications are noted. NONVASCULAR FINDINGS: CT Thorax: Lungs and pleura: Subtle interstitial prominence is suspectedperipherally. Mild pulmonary fibrosis is possible. 2 mm nodule in the leftlung on image 44 of axial series 9 is seen. This could be calcifiedalthough small size limits evaluation. Mediastinum and fely: No enlarged mediastinal or hilar lymph nodes. Vasculature: As described above Axillae:No enlarged axillary lymphadenopathy. Superficial tissues: Unremarkable CT abdomen and pelvis: Phase of enhancement limits examination somewhat. Liver:Cirrhotic morphology of the liver is seen. Hypoechoic dense lesionin the posterior liver is grossly stable prior study is too small tocharacterize. Gallbladder and Biliary system:Prior cholecystectomy is noted. Pancreas:Unremarkable. Spleen:Mild splenomegaly is present. Kidneys:Unremarkable. Adrenals:Normal. Bowel:Unchanged from recent prior exam. Aorta and Retroperitoneum:No enlarged lymph nodes.Aorta as describedabove. Pelvic Organs:Not visualized Bone/Musculoskeletal: No aggressive osseous lesions. Free fluid: None Additional Findings: other =====IMPRESSION:===== No evidence of aortic aneurysm or dissection. No evidence of pulmonaryembolism. No abdominal aortic aneurysm seen. 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 2 mm nodule left lung. Follow-up in one years time could be considered. Additional findings as described above. Ordered By: AZAR DOMINGUEZ Interpreted By: Johnny Alcazar MD, 01/01/2025 12:38 PM Azar Dominguez MD CT Final Result * CT ABD+PEL WO CON (01/01/2025 10:08 AM COMB MACHINE OPERATOR) Anatomical Region Laterality Modality Abdomen Computed Tomogra phy 01/01/2025 10:5 5 AM COMB MACHINE OPERATOR Impressions 01/01/2025 11:04 AM COMB MACHINE OPERATOR =====IMPRESSION:===== 1. No evidence of renal stone or hydronephrosis. 2. Splenomegaly slightly increased from prior study. Portal venous hypertension is suspected. 3. Cirrhotic morphology of liver with subtle hypoattenuating area, grossly stable to prior study. Exam is somewhat limited in this regard however due to lack of IV contrast. 4. Additional findings as described above. Ordered By: AZAR DOMINGUEZ Interpreted By: Johnny Alcazar MD, 01/01/2025 10:55 AM Narrative 01/01/2025 11:04 AM COMB MACHINE OPERATOR [facility] [address] [facility] [place] [address] EXAMINATION: CT Abdomen and Pelvis without contrast EXAM DATE/TIME: 01/01/2025 9:54 AM REASON FOR EXAM: Left CVA tenderness COMPARISON: 04/29/2024 TECHNIQUE: Axial CT images of the abdomen and pelvis are obtained without the use of IV contrast agent. Subsequent coronal and sagittal reformatted sequences are created for evaluation. A dose lowering technique was used for this procedure, which may include, but is not limited to, dose reduction technique, automated exposure control, the use of iterative reconstruction, and ALARA (As Low As Reasonably Achievable) / Image Gently techniques. FINDINGS: No evidence of renal stone or hydronephrosis kidneys is seen. No perinephric stranding is noted. There is no evidence of hydroureter or ureteral stone. The urinary bladder is unremarkable without definite stone. Previously noted left renal stone is no longer visualized. Lung Bases: Peripheral interstitial prominence particularly in the right lung is stable from prior study suggestive of pulmonary fibrosis. Liver:Cirrhotic morphology is seen similar prior study. Subtle hypodensity on image 30 is unchanged from prior exam. Gallbladder and Biliary system:Prior cholecystectomy is noted. Pancreas:Unremarkable. Spleen:Splenomegaly is seen measuring 12.1 cm in craniocaudal extent, slightly increased from prior study. Kidneys:As described above Ureters and bladder: As described above Adrenals:Normal. Bowel:Colonic and rectal stool is seen. No small bowel dilatation is seen.The stomach, duodenum, and viewed portions of the esophagus are unremarkable.The appendix is not visualized. Postoperative change of the cecum suggest prior study. Aorta and Retroperitoneum:No enlarged lymph nodes. Aorta is not aneurysmal. Pelvic Organs:Not visualized Bone/Musculoskeletal: No aggressive osseous lesions. Ascites: None Additional Findings: other Procedure Note Johnny Alcazar MD - 01/01/2025 [facility] [address] [place] [address] EXAMINATION: CT Abdomen and Pelvis without contrast EXAM DATE/TIME: 01/01/2025 9:54 AM REASON FOR EXAM: Left CVA tenderness COMPARISON: 04/29/2024 TECHNIQUE: Axial CT images of the abdomen and pelvis are obtained withoutthe use of IV contrast agent. Subsequent coronal and sagittal reformattedsequences are created for evaluation. A dose lowering technique was usedfor this procedure, which may include, but is not limited to, dosereduction technique, automated exposure control, the use of iterativereconstruction, and ALARA (As Low As Reasonably Achievable) / Image Gentlytechniques. FINDINGS: No evidence of renal stone or hydronephrosis kidneys is seen.No perinephric stranding is noted. There is no evidence of hydroureter orureteral stone. The urinary bladder is unremarkable without definitestone. Previously noted left renal stone is no longer visualized. Lung Bases: Peripheral interstitial prominence particularly in the rightlung is stable from prior study suggestive of pulmonary fibrosis. Liver:Cirrhotic morphology is seen similar prior study. Subtle hypodensityon image 30 is unchanged from prior exam. Gallbladder and Biliary system:Prior cholecystectomy is noted. Pancreas:Unremarkable. Spleen:Splenomegaly is seen measuring 12.1 cm in craniocaudal extent,slightly increased from prior study. Kidneys:As described above Ureters and bladder: As described above Adrenals:Normal. Bowel:Colonic and rectal stool is seen. No small bowel dilatation isseen.The stomach, duodenum, and viewed portions of the esophagus areunremarkable.The appendix is not visualized. Postoperative change of thececum suggest prior study. Aorta and Retroperitoneum:No enlarged lymph nodes. Aorta is notaneurysmal. Pelvic Organs:Not visualized Bone/Musculoskeletal: No aggressive osseous lesions. Ascites: None Additional Findings: other =====IMPRESSION:===== 1. No evidence of renal stone or hydronephrosis. 2. Splenomegaly slightly increased from prior study. Portal venoushypertension is suspected. 3. Cirrhotic morphology of liver with subtle hypoattenuating area,grossly stable to prior study. Exam is somewhat limited in this regardhowever due to lack of IV contrast. 4. Additional findings as described above. Ordered By: AZAR DOMINGUEZ Interpreted By: Johnny Alcazar MD, 01/01/2025 10:55 AM Azar Dominguez MD CT Final Result * (ABNORMAL) PARTIAL THROMBOPLASTIN TIME,PTT (01/01/2025 9:11 AM COMB MACHINE OPERATOR) PTT 53.1(H) 27.0 - 36.8 SEC 01/01/2025 9:27 AM COMB MACHINE OPERATOR [facility] 01/01/2025 9:11 AM COMB MACHINE OPERATOR us Azar Dominguez MD LABORATORY Final Result [facility] [address] [place] [address], [place] [phone] * (ABNORMAL) PROTIME/INR, VENOUS (01/01/2025 9:11 AM COMB MACHINE OPERATOR) Pathologist [facility] PROTIME 13.7(H) 9.1 - 12.4 SEC 01/01/2025 9:27 AM [facility] INR 1.2 01/01/2025 9:27 AM [facility] Comment: Recommend INR ranges for Oral Anticoagulant Therapy: Mechanical Cardiac Values 2.5-3.5 All others indication 2.0-3.0 01/01/2025 9:11 AM [facility] Azar Dominguez MD LABORATORY Final Result [facility] [address] [place] [address], * (ABNORMAL) COMPREHENSIVE METABOLIC PANEL (01/01/2025 9:11 AM COMB MACHINE OPERATOR) [facility] GLUCOSE 121(H) 70 - 99 MG/DL 01/01/2025 9:35 AM [facility] BUN 7 7 - 18 MG/DL 01/01/2025 9:35 AM [facility] CREATININE S/P/B 0.61 0.55 - 1.02 MG/DL 01/01/2025 9:35 AM [facility] SODIUM S/P/B 141 136 - 145 MMOL/L 01/01/2025 9:35 AM [facility] POTASSIUM S/P/B 3.8 3.5 - 5.1 MMOL/L 01/01/2025 9:35 AM [facility] CHLORIDE S/P/B 105 100 - 108 MMOL/L 01/01/2025 9:35 AM [facility] CO2 23.8 21 - 32 MMOL/L 01/01/2025 9:35 AM [facility] CALCIUM S/P/B 8.9 8.5 - 10.1 MG/DL 01/01/2025 9:35 AM [facility] BILIRUBIN TOTAL S/P/B 0.9 0.2 - 1.2 MG/DL 01/01/2025 9:35 AM [facility] TOTAL PROTEIN S/P/B 7.5 6.4 - 8.2 G/DL 01/01/2025 9:35 AM [facility] ALBUMIN S/P/B 3.4 3.4 - 5.0 G/DL 01/01/2025 9:35 AM [facility] AST 111(H) 15 - 37 U/L 01/01/2025 9:35 AM [facility] ALT 86(H) 14 - 55 U/L 01/01/2025 9:35 AM [facility] ALKALINE PHOSPHATASE S/P/B 113 50 - 136 U/L 01/01/2025 9:35 AM [facility] ANION GAP 12.2 5 - 15 MMOL/L 01/01/2025 9:35 AM [facility] BUN CREATININE RATIO 11.5 6 - 26 01/01/2025 9:35 AM [facility] A/G RATIO 0.8(L) 1.0 - 2.0 RATIO 01/01/2025 9:35 AM [facility] GFR ESTIMATE >90 >90 ML/MIN/1.7 3 M2 01/01/2025 9:35 AM [facility] Comment: NOTE: eGFR is not calculated for patients <18 years of age. This is an estimated GFR calculation using the new CKD EPI creatinine equation without race and so does not require a correction factor for race. This estimated GFR should not be used for calculating drug doses. 01/01/2025 9:11 AM COMB MACHINE OPERATOR Azar Dominguez MD LABORATORY Final Result [facility] [address] [place] [address], * (ABNORMAL) CBC W/DIFF AUTOMATED (01/01/2025 9:11 AM COMB MACHINE OPERATOR) WBC 4.54 4.4 - 11.0 x10'3/uL 01/01/2025 9:20 AM [facility] RBC 4.20(L) 4.50 - 5.10 x10'6/uL 01/01/2025 9:20 AM [facility] HGB 14.5 12.3 - 15.3 G/DL 01/01/2025 9:20 AM [facility] HCT 40.7 35.9 - 44.6 % 01/01/2025 9:20 AM [facility] MCV 96.9(H) 80.0 - 96.0 FL 01/01/2025 9:20 AM [facility] MCH 34.5(H) 25.3 - 30.9 PG 01/01/2025 9:20 AM [facility] MCHC 35.6(H) 31.0 - 34.1 G/DL 01/01/2025 9:20 AM [facility] RDW 12.5 12.4 - 15.1 % 01/01/2025 9:20 AM [facility] PLT 167 151 - 353 x10'3/uL 01/01/2025 9:20 AM [facility] MPV 9.6 9.6 - 12.0 FL 01/01/2025 9:20 AM [facility] RBC MORPHOLOGY NORMAL 01/01/2025 9:20 AM [facility] PLT MORPH. NORMAL 01/01/2025 9:20 AM [facility] WBC MORPHOLOGY NORMAL 01/01/2025 9:20 AM [facility] LYMPHOCYTES % 32.8 15.8 - 45.0 % 01/01/2025 9:20 AM [facility] NEUTROPHILS % 51.2 42.1 - 71.9 % 01/01/2025 9:20 AM [facility] MONOCYTES % 7.0 5.7 - 12.5 % 01/01/2025 9:20 AM [facility] EOSINOPHILS 7.7(H) 0.0 - 5.6 % 01/01/2025 9:20 AM [facility] BASOPHILS 1.1 0.0 - 1.3 % 01/01/2025 9:20 AM [facility] ABS. NEUTROPHILS 2.32 1.40 - 6.00 x10'3/uL 01/01/2025 9:20 AM [facility] IMMATURE GRANS % 0.2 0.0 - 0.5 % 01/01/2025 9:20 AM [facility] ABS. LYMPHOCYTES 1.49 0.80 - 4.70 x10'3/uL 01/01/2025 9:20 AM [facility] 01/01/2025 9:11 AM [facility] us Azar Dominguez MD LABORATORY Final Result [facility] [address] [place] [address], * LIPASE (01/01/2025 9:11 AM [facility]) LIPASE 30 16 - 77 UNITS/L 01/01/2025 9:35 AM [facility] 01/01/2025 9:11 AM COMB MACHINE OPERATOR us Azar Dominguez MD LABORATORY Final Result [facility] [address] [place] [address], [place] [phone] * (ABNORMAL) URINALYSIS, AUTO, COMPLETE (01/01/2025 9:00 AM COMB MACHINE OPERATOR) COLOR (U) YELLOW 01/01/2025 9:43 AM [facility] TRANSPARENCY CLEAR 01/01/2025 9:43 AM [facility] SPECIFIC GRAVITY (U) 1.025 1.000 - 1.030 01/01/2025 9:43 AM [facility] U PH 6.0 5.0 - 9.0 01/01/2025 9:43 AM [facility] LEUKOCYTES (U) TRACE(A) NEGATIVE 01/01/2025 9:43 AM [facility] NITRITES NEGATIVE NEGATIVE 01/01/2025 9:43 AM [facility] PROTEIN RANDOM (U) NEGATIVE NEGATIVE 01/01/2025 9:43 AM [facility] GLUCOSE (U) NEGATIVE NEGATIVE 01/01/2025 9:43 AM [facility] KETONES MG/DL (U) NEGATIVE NEGATIVE 01/01/2025 9:43 AM [facility] BILIRUBIN (U) NEGATIVE NEGATIVE 01/01/2025 9:43 AM [facility] BLOOD (U) NEGATIVE NEGATIVE 01/01/2025 9:43 AM [facility] WBC/HPF 0-5 0 - 5 /HPF 01/01/2025 9:43 AM [facility] RBC/HPF 0-5 0 - 5 /HPF 01/01/2025 9:43 AM COMB MACHINE OPERATOR [facility] EPI/HPF MODERATE /HPF 01/01/2025 9:43 AM COMB MACHINE OPERATOR [facility] BACTERIA (U) RARE /HPF 01/01/2025 9:43 AM COMB MACHINE OPERATOR [facility] URINE SPECIMEN OBTAINED BY CLEAN CATCH PROCEDURE / Unknown 01/01/2025 9:00 AM COMB MACHINE OPERATOR us Azar Dominguez MD URINE ORDERABLES Final Result [facility] [address] [place] [address], [place] [phone] from Last 3 Months Insurance [facility] Care Teams Drug Enforcement Administration Agent Relationship Specialty Start Date End Date [place] [address] PCP - General PHYSICIAN [employer] MECHANIC 07/16/24
[2025-02-17 08:36] VITALS: BP 127/66; PULSE 83; RESP 18; TEMP 36.6; O2SAT 97
--- OUTSIDE RECORDS SUMMARY | 2025-02-17 08:40 | XMS_ITS | Continuity of Care Document ---
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 Name Role Phone [facility] Unavailable Unavailable Problems Combined list of problems [...] 30 tab(s), 0 total refill(s ), [facility], Pharmacy : [facility] #[id number] Oral (given by mouth) Ordered 2023 30.0 0055C-3 [facility] cetirizine 10 mg oral tablet 1 tab(s), Oral, Daily, PRN allergy symptoms , # 90 tab(s), 3 total refill(s ), [facility], Pharmacy : [facility] Oral (given by mouth) Ordered 5 2024 90.0 0055C-3 [facility] cetirizine 10 mg oral tablet 1 tab(s), Oral, Daily, PRN allergy symptoms , # 90 tab(s), 3 total refill(s ), [facility], Pharmacy : [facility] Oral (given by mouth) Discont inued 01/23/2025 4 2024 90.0 0055C-3 [facility] cyclobenzap rine 10 mg oral tablet 1 tab(s), Oral, every day at bedtime, # 30 tab(s), 0 total refill(s ), Acute, Pharmacy : [facility] Oral (given by mouth) Complet ed [...] refill(s ), Acute, Pharmacy : [facility] Oral (given by mouth) Ordered 01/23/2026 5 2024 90.0 0055C-3 [facility] cyclobenzap rine 10 mg oral tablet 1 tab(s), Oral, TID, PRN spasm, # 30 tab(s), 0 total refill(s ), Acute, Pharmacy : [facility] Oral (given by mouth) Complet ed 02/28/2024 4 2023 30.0 0055C-3 [facility] FLUoxetine 10 mg oral capsule 1 cap(s), Oral, Daily, # 45 cap(s), 0 total refill(s ), [facility], Pharmacy : [facility] Oral (given by mouth) Discont inued 01/28/2024 4 2023 45.0 0055C-3 [facility] FLUoxetine 10 mg oral capsule 1 cap(s), Oral, Daily, # 90 cap(s), 3 total refill(s ), [facility], Pharmacy : [facility] Oral (given by mouth) Discont inued 05/01/2024 4 2023 90.0 0055C-3 [facility] FLUoxetine 10 mg oral capsule 1 cap(s), Oral, Daily, # 90 cap(s), 3 total refill(s ), [facility], Pharmacy : [facility] Oral (given by mouth) Discont inued 01/23/2025 4 2024 90.0 0055C-3 [facility] FLUoxetine 10 mg oral capsule 1 cap(s), Oral, Daily, # 90 cap(s), 0 total refill(s ), [facility], [facility] : [facility] Oral (given by mouth) Discont inued 03/18/2024 4 2023 90.0 0055C-3 75[facility] FLUoxetine 20 mg oral capsule 1 cap(s), Oral, Daily, # 90 cap(s), 3 total refill(s ), [facility], [facility] : [facility] Oral (given by mouth) Discont inued 12/14/20232023 90.0 0055C-3 [facility] [place] FLUoxetine 20 mg oral capsule 1 cap(s), Oral, Daily, # 90 cap(s), 3 total refill(s ), [facility], [facility] : [facility] Oral (given by mouth) Discont inued 05/01/2024 4 2023 90.0 0055C-3 75[facility] [place] FLUoxetine 20 mg oral capsule 1 cap(s), Oral, Daily, # 90 cap(s), 3 total refill(s ), [facility], Pharmacy : [facility] Oral (given by mouth) Discont inued 01/23/2025 2024 90.0 0055C-[address] [place] [address] FLUoxetine 20 mg oral capsule 1 cap(s), Oral, Daily, # 90 cap(s), 3 total refill(s ), [facility], Pharmacy : [facility] Oral (given by mouth) Ordered 5 2024 90.0 0055C-[address] [place] [address] gabapentin 300 mg/24 hours oral tablet, extended release 3 tab(s), Oral, Daily, with evening meal, # 90 tab(s), 0 total refill(s ), [facility], Pharmacy : [facility] Oral (given by mouth) Discont inued 01/23/20252024 90.0 0055C-[address] [place] [address] gabapentin 600 mg oral tablet TAKE ONE TABLET BY MOUTH EVERY DAY, # 90 EA, 2 total refill(s ), Acute Complet ed 04/27/2023 3 2022 90.0 Ambulat ory Pharmac y gabapentin 600 mg oral tablet 90 tab(s), 0 Refill(s ), 0 total refill(s ), Soft Stop Discont inued 01/28/20242023 0055C-3 [facility] gabapentin 600 mg oral tablet 1 tab(s), Oral, TID, # 270 tab(s), 0 total refill(s ), [facility], Pharmacy : [facility] Oral (given by mouth) Discont inued 01/28/20242023 270.0 0055C-[address] [place] [address] HYDROcodone -acetaminop hen 5mg-325mg oral tablet 10 EA, 0 Refill(s ), TAKE 1 TABLET BY MOUTH EVERY 6 HOURS NEEDED FOR ACUTE PAIN, 0 total refill(s ), Soft Stop Discont inued 05/01/20242023 0055C-[address] [place] [address] HYDROcodone -acetaminop hen 5mg-325mg oral tablet 1 tab(s), Oral, every 6 hr, 10 EA, 0 Refill(s ), TAKE 1 TABLET BY MOUTH EVERY 6 HOURS NEEDED FOR ACUTE PAIN, # 12 tab(s), 0 total refill(s ), Acute, 05/31/24 12:00:00 AM CDT, Pharmacy : [facility] Oral (given by mouth) Complet ed 05/31/2024 4 2023 12.0 0055C-3 75[facility] HYDROcodone -acetaminop hen 5mg-325mg oral tablet 10 EA, 0 Refill(s ), TAKE 1 TABLET BY MOUTH EVERY 6 HOURS NEEDED FOR ACUTE PAIN, 0 total refill(s ), Soft Stop Discont inued 01/23/20252024 0055C-3 [facility] HYDROcodone -acetaminop hen 5mg-325mg oral tablet 1 tab(s), Oral, every 6 hr, PRN breakthr ough pain, 10 EA, 0 Refill(s ), TAKE 1 TABLET BY MOUTH EVERY 6 HOURS NEEDED FOR ACUTE PAIN, # 10 tab(s), 0 total refill(s ), Acute, 01/23/26 12:00:00 AM CDT, Pharmacy : [facility] Oral (given by mouth) Ordered 01/23/2026 5 2024 10.0 0055C-[address] [place] [address] [place] loratadine 10 mg tablet See Instruct ions, # 90 EA, 3 total refill(s ), Acute Complet ed 03/17/2024 3 2023 90.0 Ambulat ory Pharmac y naloxone 4 mg/0.1 mL nasal spray See Instruct ions, [place] one dose in one nostril, may repeat every 2 to 3 minutes in alternat ing nostrils until patient responds or medical assistan ce becomes availabl e, # 2 EA, 1 total refill(s ), [facility], Pharmacy : [facility] Ordered 4 2023 2.0 0055C-3 75[facility] [place] oxyCODONE 10 mg oral tablet 1 tab(s), Oral, every 6 hr, PRN pain, # 16 tab(s), 0 total refill(s ), Acute, 05/28/24 12:00:00 AM CDT, Pharmacy : [facility] #[id number] Oral (given by mouth) Complet ed 05/28/20242023 16.0 0055C-3 75[facility] [place] phenazopyri dine 100 mg oral tablet 1 tab(s), Oral, TID(PC), with food, X 2 days, # 6 tab(s), 0 total refill(s ), [facility], Pharmacy : [facility] Oral (given by mouth) Complet ed 05/03/2024 4 2023 6.0 0055C-3 75[facility] [place] PROzac 20 mg oral capsule 1 cap(s), Oral, Daily, # 90 cap(s), 3 total refill(s ), [facility], Pharmacy : [facility] Oral (given by mouth) Discont inued 03/18/20242023 90.0 0055C-3 75[facility] [place] PROzac 20 mg oral capsule 1 cap(s), Oral, Daily, # 90 cap(s), 3 total refill(s ), [facility], Pharmacy : [facility] Oral (given by mouth) Discont inued 12/14/2023 4 2023 90.0 0055C-3 75[facility] [place] tamsulosin 0.4 mg oral capsule 1 cap(s), Oral, Daily, 0.4 mg once daily until stone passage or for up to 4 weeks, # 30 cap(s), 0 total refill(s ), [facility], Pharmacy : [facility] #[id number] Oral (given by mouth) Discont inued 05/22/20242023 30.0 0055C-[address] [place] [address] [facility] Allergies, Adverse Reactions, Alerts Combined list [...] Site Reaction Lot Number CVX Code Drug Tool Setter Status Comments Source influenza, injectable, quadrivalent- pf [...] purified protein derivative 2008 zzLef t Arm [id number] sanofi pasteur complet ed Patient Tolerance : Negative Ambulat ory Pharmac y tetanus, diphtheria, acellular pertu is 2008 zzLef t Arm [id number] sanofi pasteur complet ed tetanus, diphtheri a, acellular pertussis 12/16/08 Given Ambulat ory Pharmac y influenza virus vaccine, live 2006 [id number] [employer] comple t ed influenza virus vaccine, live 09/17/07 Given Ambulat ory Pharmac y influenza virus vaccine, whole virus 1998 [id number] [facility] complet ed influenza virus vaccine, whole virus 08/26/99 Given Ambulat ory Pharmac y pneumococcal polysaccharid e, 23 valent 1998 [id number] [facility] [employer] complet ed pneumococ mary ann polysacch aride, [...] UA Protein Negative mg/dL 05/26 N 0055A-3 [facility] [place] Urinalysis UA Urobilinoge n 1.0 E.U./dL 0.2 - 1.0.. 05/26 N 5A-3 [facility] [place] Urinalysis UA Spec [place] 1.015 1.001 - 1.035 05/26 N -3 [facility] [place] Urinalysis UA RBC 0-2 /HPF 05/26 N -3 [facility] [place] Urinalysis UA WBC 0-2 /HPF 05/26 N -3 [facility] [place] Urinalysis UA pH 6.5 *NA* (05/26/24 12:39 PM) 5 - 8 05/26 0055A-3 [facility] [place] Urinalysis UA Leuk Esterase Negative (05/26/24 12:39 PM) 05/26 N 5A-3 [facility] [place] Urinalysis UA Clarity Clear *NA* (05/26/24 12:39 PM) 05/26-3 [facility] [place] Urinalysis UA Blood Trace-int act 05/26-3 [facility] [place] Urinalysis UA Nitrite Negative (05/26/24 12:39 PM) 05/26 N 0055A-3 [facility] [place] Urinalysis UA Ketones Negative mg/dL 05/26 N 0055A-3 [facility] [place] Urinalysis UA Bili Negative (05/26/24 12:39 PM) 05/26 N 5A-3 [facility] [place] Urinalysis UA Glucose Negative mg/dL 05/26 N 0055A-3 [facility] [place] Urinalysis UA Bacteria 1+ (05/26/24 12:39 PM) 05/26 N 0055A-3 [facility] [place] Urinalysis UA Epi Squam 3-4 (05/26/24 12:39 PM) 05/26 N 0055A-3 [facility] [place] Urinalysis UA Amorph Crystal 1+ [...] Disposition Source - th [facility] Outpatient [id number] TEETEE GAMEZ 05/26 Discharge Disposition: Home or Self Care 5A-3 [facility] [place] 5C-375 [facility] Between Visit [id number] 05/28 Discharge Disposition: Home or Self Care 5C-3 [facility] [place] 5C-375 [facility] Between Visit [id number] 05/30 Discharge Disposition: Home or Self Care 5C-3 [facility] [place] 5C-375 [facility] Between Visit [id number] 12/31 Discharge Disposition: Home or Self Care 5C-3 [facility] [place] 5C- th [facility] [id number] Localiz ed swellin g, mass and lump, left lower limb,Mi graine with aura, not intract able, without status migrain osus,An xiety disorde r, unspeci fied,Pa in in unspeci fied elbow,L ocalize d swellin g, mass and lump, right lower limb,Ot her disorde rs of lung SUSAN ROSEHALL 01/23 Discharge Disposition: Home or Self Care -3 [facility] Procedures Combined list of: 1) Procedures from [facility] facilities going back up to thelast 18 months, not all [place] non-surgical procedures are included; 2) All procedures from the Department of [facility] facilities. Procedure Procedure Type Code Date Perfomer [...] evaluation and management. Susan Girard R., Ye, [place] [address] Extracted from:Title: 0055 [facility] Virtual possible UTI Author: TEETEE PUGH PA [...] and Culture if Indicated Extracted from:Title: 0055 [facility] ER f/u kidney stone/abd pain Author: TEETEE PUGH PA Date: 05/01/24 1. K idney stone 63 y/o F p resents to clinic for f/u from for 3 mm kidney stone and UTI. Pt has R low abd pain about 8-9/10. She was given [place], Macrobid, and Ondansetron for pain and UTI [...] nausea/vomiting, lightheadedness Teetee Pugh, 1Lt, [place] [address] Ordered: cyclobenzaprine(cyclobenzaprine 10 mg oral tablet), 1 [...] 4 mg/0.1 mL nasal spray), See Instructions, [place] one dose in one nostril, may repeat every 2 to 3 minutes in alternating nostrils until patient responds or medical assistance becomes available, # 2 EA, 1 total refill(s), Maintenance, [place] one dose in one nostril, may repeat... [...] Oral TID(PC),x2 days,Instr:with food, Pharmacy: [facility] [Last filled 05/01/24] 3. A nxiety disorder Patient needs a refill on antianxiety medication. For some reason the pharmacy was not allowing her to pickle cutter medications so refill was placed. Had previous discussion earlier about her anxiety medication. Recommended patient follow up to discuss anxiety further if needed. Orders: FLUoxetine(FLUoxetine 10 mg oral capsule), 1 cap(s), Oral, Daily, # 90 cap(s), 3 total refill(s), Maintenance, 1 cap(s) Oral Daily, Pharmacy: [facility] [Federal Rx: #90 last filled 05/01/24] FLUoxetine(FLUoxetine 20 mg oral capsule), 1 cap(s), Oral, Daily, # 90 cap(s), 3 total refill(s), Maintenance, 1 cap(s) Oral Daily, Pharmacy: [facility] [Not filled] Extracted from:Title: 0055 [facility] Virtual Med refill Author: TEETEE PUGH PA [...] refill(s), Maintenance, 1 cap(s) Oral Daily, Pharmacy: [facility] [Not filled] 2. A llergic rhinitis Chronic condition. Well controlled. No other concerns. -Will continue current medication regimen -f/u as needed Ordered: cetirizine(cetirizine 10 mg oral tablet), 1 tab(s), Oral, Daily, PRN allergy symptoms, # 90 tab(s), 3 total refill(s), Maintenance, 1 tab(s) Oral Daily,PRN:allergy symptoms, Pharmacy: [facility] [Not filled] 3. C ervical strain [...] refill(s), Acute, 1 tab(s) Oral TID,PRN:spasm, Pharmacy: [facility] [Not filled] 4. N erve root [...] 3 tab(s) Oral Daily,Instr:with evening meal, Pharmacy: [facility] [Not filled] Extracted from:Title: 0055 [facility] Anxiety Author: TEETEE PUGH PA Date: 12/14/23 [...] Complete 3+ Views Left 01/23/25 02/17/2025 0055C-375[facility] Assessment and Plan Extracted from:Title : [...] evaluation and management. Susan Girard R., Ye, [facility] [place] [address] Extracted from:Title: 0055 [facility] Virtual possible UTI [...] and Culture if Indicated Extracted from:Title: 0055 [facility] ER f/u kidney stone/abd pain Author: TEETEE PUGH PA Date: 05/01/24 1. K miladis stone 63 y/o F p resents to clinic for f/u from for 3 mm kidney stone and UTI. Pt has R low abd pain about 8-9/10. She was given [place], Macrobid, and Ondansetron for pain and UTI [...] nausea/vomiting, lightheadedness Teetee Pugh, 1Lt, [facility] [place] [address] Ordered: cyclobenzaprine(cyclobenzaprine 10 mg oral tablet), 1 tab(s), Oral, every day at bedtime, # 30 tab(s), 0 total refill(s), Acute, 1 tab(s) Oral every day at bedtime, Pharmacy: [facility] [Last filled 05/01/24] HYDROcodone-acetaminophen(HYDROcod [...] 4 mg/0.1 mL nasal spray), See Instructions, [place] one dose in one nostril, may repeat every 2 to 3 minutes in alternating nostrils until patient responds or medical assistance becomes available, # 2 EA, 1 total refill(s), Maintenance, [place] one dose in one nostril, may repeat... [...] 1 tab(s) Oral TID(PC),x2 days,Instr:with food, Pharmacy: [facility] [Last filled 05/01/24] 3. A nxiety disorder Patient needs a refill on antianxiety medication. For some reason the pharmacy was not allowing her to pickle cutter medications so refill was placed. Had previous discussion earlier about her anxiety medication. Recommended patient follow up to discuss anxiety further if needed. Orders: FLUoxetine(FLUoxetine 10 mg oral capsule), 1 cap(s), Oral, Daily, # 90 cap(s), 3 total refill(s), Maintenance, 1 cap(s) Oral Daily, Pharmacy: [facility] [Federal Rx: #90 last filled 05/01/24] FLUoxetine(FLUoxetine 20 mg oral capsule), 1 cap(s), Oral, Daily, # 90 cap(s), 3 total refill(s), Maintenance, 1 cap(s) Oral Daily, Pharmacy: [facility] [Not filled] Extracted from:Title: 0055 [facility] Virtual Med refill Author: TEETEE PUGH PA [...] medication is stopped abruptly without taper. -[facility]ed [email or web address] for therapy - Advised patient to go to ER immediately for SI/HI/morbid ideation. - F/u as needed Ordered: FLUoxetine(FLUoxetine 10 mg oral capsule), 1 cap(s), Oral, Daily, # 90 cap(s), 0 total refill(s), Maintenance, 1 cap(s) Oral Daily, Pharmacy: [facility] [Not filled] 2. A llergic rhinitis Chronic condition. Well controlled. No other concerns. -Will continue current medication regimen -f/u as needed Ordered: cetirizine(cetirizine 10 mg oral tablet), 1 tab(s), Oral, Daily, PRN allergy symptoms, # 90 tab(s), 3 total refill(s), Maintenance, 1 tab(s) Oral Daily,PRN:allergy symptoms, Pharmacy: [facility] [Not filled] 3. C ervical strain [...] refill(s), Acute, 1 tab(s) Oral TID,PRN:spasm, Pharmacy: [facility] [Not filled] 4. N erve root [...] 3 tab(s) Oral Daily,Instr:with evening meal, Pharmacy: [facility] [Not filled] Extracted from:Title: 0055 [facility] [...] refill(s), Maintenance, 1 cap(s) Oral Daily, Pharmacy: [facility] [Not filled] Orders: FLUoxetine(PROzac 20 mg oral capsule), 1 cap(s), Oral, Daily, # 90 cap(s), 3 total refill(s), Maintenance, 1 cap(s) Oral Daily, Pharmacy: [facility] [Not filled] Future Scheduled TestsLaboratoryUrinalysis with Microscopic and Culture if Indicated 12/31/24RadiologyXR Elbow Complete 3+ Views Left 01/23/25 02/17/2025 Unknown Organization Functional Status Combined list of recent functional and cognitive assessments recorded at [facility] ([facility] Functional [place] Measurement (FIM) Scale: 1 = Total Assistance (Subject = 0% +), 2 = Maximal Assistance (Subject = 25% +), 3 = Moderate Assistance (Subject = 50% +), 4 = Minimal Assistance (Subject = 75% +), 5 = Supervision, 6 = Modified [place] (Device), 7 = Complete [place] (Timely, Safely). Assessment Date/Time Source Assessment Type Assessment Skill Assessment Score Assessment Details No data available for this section
--- NOTE | 2025-02-17 09:03 | ED_ITS ---
HPI - URI/Sore Throat General Chief Complaint: Upper Respiratory Infection Stated Complaint: sorethroat,wheezing Time Seen by Provider: 02/17/25 08:45 Source: patient and RN notes reviewed Mode of arrival: ambulatory Limitations: no limitations History of Present Illness HPI Narrative: 64-year-old female presents Express Care complaining of upper respiratory symptoms for 8 days. Patient took a rapid COVID swab at home approximately 7 days ago was positive. Patient stated symptoms started to get better by the end of the week and now suddenly got worse. She says she has a worsening cough, sore throat, and chest congestion. Patient states she has a dry hacking cough is nonproductive. She states the cough is worse at night. She denies any chest pain or shortness of breath. Patient has been taken [id number] cold and flu medicine for symptoms. Patient denies any significant past medical history Related Data Home Medications ?Medication ?Instructions ?Recorded ?Confirmed ?Last Taken ?Type fluoxetine 20 mg capsule 20 mg PO DAILY 07/02/20 01/05/23 Unknown History cyclobenzaprine 10 mg tablet mg 02/17/25 Unknown History Allergies Allergy/AdvReac Type Severity Reaction Status Date / Time sulfamethizole Allergy Mild Hives Verified 01/05/23 11:51 sulfamethoxazole Allergy Mild Hives Verified 04/03/24 12:05 trimethoprim Allergy Mild Hives Verified 04/03/24 12:05 morphine AdvReac Headache Verified 04/03/24 12:05 Review of Systems Review of Systems: CONSTITUTIONAL: Denies fever, chills, or sweats. EYES: Denies visual changes, redness, or discharge. ENT: Denies rhinorrhea, or otalgia. Positive for sore throat and congestion. CARDIOVASCULAR: Denies chest pain, palpitations, dizziness, or edema. RESPIRATORY: Positive for cough negative for dyspnea. GASTROINTESTINAL: Denies abdominal pain, nausea, vomiting, or diarrhea. GENITOURINARY: Denies dysuria or hematuria. SKIN: Denies rash or itching. MUSCULOSKELETAL: Denies back pain, joint pain, or myalgia. NEUROLOGIC: Denies headache, numbness, or weakness. PSYCHIATRIC: Denies anxiety or depression. All other systems reviewed are negative, except as documented in HPI. [facility] Past Medical History Medical History Anxiety C. difficile colitis (11/2022) Mucinous cystadenoma of appendix Migraines Surgical History Surgical History History of hysterectomy History of cataract removal with insertion of prosthetic lens History of cholecystectomy History of colonoscopy History of laparoscopic appendectomy (08/2015) History of right inguinal hernia repair (10/2015) Laparoscopic repair with mesh in 10/2015. Open repair with mesh for recurrent hernia in 02/2016. Family History Family History Father Chronic obstructive pulmonary disease Colon cancer Prostate carcinoma Lung cancer Liver cancer Mother Diabetes mellitus Grandparent Diabetes mellitus Prostate carcinoma Sibling Prostate carcinoma Social History Social History Social History: Surrogate medical decision maker: Dereje Jesusgs, spouse. Code status: Full code. Smoking status: Never smoker Alcohol intake: never Substance use: never Lack of Transportation: No Lack of Food: Never True Current Housing: I Have Housing Concerned About Future Housing: No Difficulty Paying Gas/Electric Bills: No Difficulty Paying for Meds: No Currently Unemployed: No Education: Bachelor's Degree Difficulty w/ Childcare or Family Care: No Additional living arrangements comments: Lives with spouse in [place]. Additional occupation/education comments: Retired. Spiritual care concerns: No Comments At the time of my signature, I reviewed and agree with the nursing past medical, surgical, social, and family history. There is no relevant family history pertinent to the patient complaint. Exam Narrative: GENERAL: This is a well-nourished, well-developed adult, in no apparent distress. They are non ill-appearing, nontoxic appearing. HEAD: normocephalic, atraumatic. EYES: Sclera clear/white. Vision is grossly intact. EARS: External ears normal, auditory canals clear and without drainage, TMs normal without perforation. Hearing grossly intact. NOSE: External nose normal with no obvious nasal discharge, nasal turbinates are erythema without swelling bilaterally, no rhinorrhea. THROAT: Mucous membranes moist, posterior pharynx mild erythema and postnasal drip. No swelling. Uvula midline. NECK: Neck supple, non-tender without lymphadenopathy, masses or thyromegaly. CARDIOVASCULAR: Regular rate and rhythm without murmurs, gallops, or rubs. RESPIRATORY: Diminished to bilateral lower lobes. Cough is exacerbated by deep inspiration. Breath sounds equal bilaterally. No wheezes, rales, or rhonchi. SKIN: warm, Dry, intact with no suspicious lesions or rash, good texture and turgor. NEURO: awake, alert, and oriented to person, place and time. There were no obvious focal neurologic abnormalities. EXTREMITIES: No joint tenderness, effusion, or edema noted. Course Course Emergency Course: Patient is aware of diagnosis, understands and agrees to treatment plan. Anticipatory guidance given. Patient agrees to follow-up as directed and is aware of reasons to seek care at the emergency department. Portions of this record may have been created with voice recognition software Level of Care: Express Care Visit Vital Signs Vital signs: Vital Signs Temperature 97.9 F 02/17/25 08:36 Pulse Rate 83 02/17/25 08:36 Respiratory Rate 18 02/17/25 08:36 Blood Pressure 127/66 02/17/25 08:36 Pulse Oximetry 97 02/17/25 08:36 Oxygen Delivery Room Air 02/17/25 08:36 Temperature 97.9 F 02/17/25 08:36 Pulse Rate 83 02/17/25 08:36 Respiratory Rate 18 02/17/25 08:36 Blood Pressure 127/66 02/17/25 08:36 Pulse Oximetry 97 02/17/25 08:36 Oxygen Delivery Room Air 02/17/25 08:36 Reviewed MDM - URI/Sore Throat MDM Narrative Medical decision making narrative: Chest x-ray was negative for pneumonia or any acute findings. Symptoms are likely consistent with a lingering COVID symptoms. Since the patient has worsening symptoms and worsening dry cough especially at night, will treat for a bronchitis with prednisone and albuterol inhaler. Discussed physical exam findings. Advised supportive measures and signs/symptoms to go to the ER. Pt is appropriate for outpt treatment and f/u. Differential Diagnosis Differential diagnosis: Likely viral infection, bronchitis and other (COVID-19) Imaging Data Radiologist's impression: FINDINGS: The lungs are clear. The cardiomediastinal silhouette is within normal limits. There are no pleural effusions. There is no pneumothorax suspected. IMPRESSION: 1: NO ACUTE CARDIOPULMONARY DISEASE Critical Care Time Critical Care Time Critical Care Time: No Discharge Plan Discharge Clinical Impression: Bronchitis Patient Disposition: Home Condition: Stable Instructions: COVID-19 (Coronavirus Disease 2019) (ED) Additional Instructions: Your chest x-ray was negative for any acute findings or pneumonia. Take prednisone as directed. Take prednisone with food in the morning. Use the albuterol inhaler as directed. Recommend Flonase spray and Zyrtec (or Claritin/Giselle) over the counter Cough syrup may cause drowsiness; avoid driving or take it at night time. He may take Tylenol or ibuprofen as needed for pain or fevers. Symptomatic treatment includes: rest, fluids, and increase humidity of the air at home. Follow up with your primary care provider as needed in 1 week Go to the ER for worsening symptoms or concerns Patient Language: Frisian Prescriptions: New prednisone 20 mg tablet 40 mg PO DAILY 5 Days Qty: 10 0RF albuterol sulfate [Ventolin HFA] 90 mcg/actuation HFA aerosol inhaler 2 puff inhalation QID PRN (Reason: shortness of breath or wheezing) Qty: 8.5 0RF No Action fluoxetine 20 mg Capsule 20 mg PO DAILY cyclobenzaprine 10 mg tablet Follow-up/Referrals: UNKNOWN,DOCTOR [Primary Care Provider] - Time of Disposition: 09:16
== END 2025-02-17 09:23 | disposition home or self-care (01) ==
DX: J40 Bronchitis, not specified as acute or chronic (principal); F41.9 Anxiety disorder, unspecified; Z86.19 Personal history of other infectious and parasitic diseases
CPT/HCPCS: 71046; 99213; G0463